=== PATIENT | female | born 1985 | race Caucasian/White ===

== ENCOUNTER → 2016-10-09 | Outpatient (CLI) | payer OTHER ==
--- NOTE | 2016-10-09 08:02 | US ---
EXAMINATION TYPE: US thyroid st tissue head/neck DATE OF EXAM: 10/09/2016 7:24 AM COMPARISON: No previous CLINICAL HISTORY: Swelling, mass and lump R22.1, Abd R10.9. Intermittent left neck palpable lump x 3 months TECHNOLOGIST IMPRESSION: Scanned left neck area of concern: multiple hypoechoic areas with largest m easuring 2.1cm, probable lymph nodes, scanned right neck for comparison; multiple hypoechoic areas wi th largest measuring 1.4cm, probable lymph nodes IMPRESSION: Multiple, normal-appearing lymph nodes.
== END | disposition home or self-care (01) ==
LOC: RADUSWWP 07:03
PROVIDERS: ATTEND Family Medicine
DX: R22.1 Localized swelling, mass and lump, neck (principal)
CPT/HCPCS: 76536

== ENCOUNTER → 2016-10-15 | Outpatient (CLI) | payer OTHER ==
--- NOTE | 2016-10-15 12:48 | PN ---
A 31-year-old lady had been followed in the sleep center to discuss results of sleep study. We discussed results of sleep studies with the patient in detail. No significant respiratory abnormalities by polysomnogram following 4% oxygen desaturation criteria, mild and moderate snoring had been documented. Multiple sleep latency test showed practically normal results with mean sleep latency 14.9 minutes, which is normal. At the same time, patient continued to feel some sleepiness during the day. During the visit, [place] Sleepiness Scale increased to 18. MEDICATIONS: Naproxen, Singulair, amlodipine. PHYSICAL EXAMINATION: GENERAL: A pleasant patient without any distress. During physical exam, the patient in no distress. VITAL SIGNS: BP 121/71, HR 76, RR 16. Height 5 feet 3 inches, weight 244. BMI 43.2. Temperature 98.3. Oxygen saturation at room air 97%. HEENT: PERRLA, EOMI, Evaluation of the oropharynx extremely low position of soft palate. NECK: Supple. No JVD, Thyroid is not palpable. LUNGS: Clear to percussion and to auscultation. Good air exchange. No wheezing or rhonchi. HEART: S1, S2 regular. No murmurs, gallops, or rubs. ABDOMEN: Obese. TELEVISION ACTOR: Awake, alert, and oriented x3. Cranial nerves 2 to 7 intact. There is no fasciculation or atrophy noted. No focal deficits observed. IMPRESSION: 1. Mild to moderate snoring has been documented during the sleep study. 2. No significant respiratory abnormalities following 4% oxygen desaturation criteria. 3. No significant sleepiness by results of MSLT normal ( ) latency. 4. Patient continued to have some symptoms of excessive daytime sleepiness, [place] Sleepiness Scale is 18. 5. Hypertension. 6. Allergy. 7. Neck problem. 8. Status post tonsillectomy. 9. Back problems. PLAN: 1. Losing weight. 2. Sleep hygiene with regular time in bed for at least 8 hours. 3. No driving if feeling any sleepiness. 4. Preferable position during sleep on the side and slightly up. Thank you very much for allowing me to participate in the management of your patient. Sincerely, Joseph Wright MD, PhD, FAASM Diplomat of [place] [employer], Sleep Medicine Board by [place] [employer] [employer] [place]
== END | disposition home or self-care (01) ==
LOC: SLEEP 10:27
PROVIDERS: ATTEND Internal Medicine
DX: R06.83 Snoring (principal); I10 Essential (primary) hypertension; Z91.09 Other allergy status, other than to drugs and biological substances; Z98.890 Other specified postprocedural states; Z79.899 Other long term (current) drug therapy

== ENCOUNTER 2017-02-26 14:35 | Emergency (ER) | payer OTHER ==
[2017-02-26 14:43] VITALS: RESP 20
[2017-02-26] MEDS ORDERED: ONDANSETRON 4 MG/2 ML VIAL IVP STA (14:49)
[2017-02-26] MEDS ORDERED: MORPHINE SULFATE 4 MG/ML SYRINGE IVP STA (14:49)
[2017-02-26] MEDS ORDERED: SODIUM CHLORIDE 0.9% 1,000 ML IV ONE (14:49)
--- NOTE | 2017-02-26 15:15 | ED ---
General Adult HPI - General Chief complaint: Recheck/Abnormal Lab/Rx Stated complaint: Abd pain Source: patient Mode of arrival: ambulatory Limitations: no limitations - History of Present Illness Initial comments: 31-year-old female with past medical history of hypertension presenting for evaluation of right upper quadrant pain present since September but worsening over the last 8 weeks. She states that the pain comes and goes there is no association with by mouth intake or specific foods. She was evaluated in September with a negative workup for her gallbladder however today she was seen by her primary care physician and a recent ultrasound showed indications of cholecystitis. She was sent by her primary care physician Dr. Garcia for ED evaluation. States taking naproxen without relief. Associated nausea. - Related Data Home Medications Medication Instructions Recorded Confirmed amLODIPine BESYLATE [Norvasc] 5 mg PO DAILY 01/22/15 02/26/17 Previous Rx's Medication Instructions Recorded HYDROcodone/APAP 5-325MG [[place] 1 - 2 tab PO Q6HR PRN #20 tab 02/26/17 5-325] Ondansetron HCl [Zofran] 4 mg PO Q8HR PRN #10 tablet 02/26/17 Allergies Allergy/AdvReac Type Severity Reaction Status Date / Time No Known Allergies Allergy Verified 09/20/15 12:11 Review of Systems ROS Statement: Those systems with pertinent positive or pertinent negative responses have been documented in the HPI. ROS Other: All systems not noted in ROS Statement are negative. Constitutional: Denies: fever, chills, weakness, weight change Eyes: Denies: eye pain, eye discharge, vision change ENT: Denies: ear pain, throat pain Respiratory: Denies: cough, dyspnea, wheezes Cardiovascular: Denies: chest pain, palpitations, dyspnea on exertion Endocrine: Denies: fatigue, polydipsia, polyuria Gastrointestinal: Reports: abdominal pain, nausea. Denies: vomiting, diarrhea, constipation, hematemesis, melena, hematochezia Genitourinary: Denies: urgency, dysuria Musculoskeletal: Denies: back pain, arthralgia, myalgia Skin: Denies: rash, lesions Neurological: Denies: headache, weakness Psychiatric: Denies: anxiety, depression Hematological/Lymphatic: Denies: easy bleeding, easy bruising Past Medical History Past Medical History: Hypertension Additional Past Medical History / Comment(s): HAVING ABDOMINAL PAIN. History of Any Multi-Drug Resistant Organisms: None Reported Past Surgical History: Section, Tonsillectomy, Tubal Ligation, Uterine Ablation Past Anesthesia/Blood Transfusion Reactions: No Reported Reaction Additional Past Anesthesia/Blood Transfusion Reaction / Comment(s): STATES SHE HAD MUSCLE WEAKNESS FOR 24 HOURS POST SURGERY IN June, (HAD GENERAL ANESTHESIA). STATES THAT NO IMMEDIATE FAMILY MEMBERS HAD ANY SUCH SYMPTOMS OR HIGH TEMP POST ANESTHESIA. Past Psychological History: No Psychological Hx Reported Smoking Status: Never smoker Past Alcohol Use History: Rare Past Drug Use History: None Reported - Past Family History Mother Family Medical History: No Reported History Father Family Medical History: Hypertension General Exam Limitations: no limitations General appearance: alert, in no apparent distress Head exam: Present: atraumatic, normocephalic, normal inspection Eye exam: Present: normal appearance, PERRL, EOMI. Absent: scleral icterus, conjunctival injection, periorbital swelling ENT exam: Present: normal exam, mucous membranes moist Neck exam: Present: normal inspection. Absent: tenderness, meningismus, lymphadenopathy Respiratory exam: Present: normal lung sounds bilaterally. Absent: respiratory distress, wheezes, rales, rhonchi, stridor Cardiovascular Exam: Present: regular rate, normal rhythm, normal heart sounds. Absent: systolic murmur, diastolic murmur, rubs, gallop, clicks GI/Abdominal exam: Present: soft, tenderness, normal bowel sounds. Absent: distended, guarding, rebound, rigid Rectal exam: Present: deferred Extremities exam: Present: normal inspection, full ROM, normal capillary refill. Absent: tenderness, pedal edema, joint swelling, calf tenderness Back exam: Present: normal inspection Neurological exam: Present: alert, oriented X3, CN II-XII intact Psychiatric exam: Present: normal affect, normal mood Skin exam: Present: warm, dry, intact, normal color. Absent: rash Course Vital Signs 02/26/17 02/26/17 14:38 16:35 Temperature 100.2 F H 97.9 F Pulse Rate 103 H 68 Respiratory 20 20 Rate Blood Pressure 145/97 118/71 O2 Sat by Pulse 98 98 Oximetry Medical Decision Making - Medical Decision Making 31-year-old female presenting for evaluation of outpatient ultrasound of her abdomen which showed indications of cholecystitis. Sent by her primary care physician Dr. Garcia after attempts to contact surgeons for outpatient management were unsuccessful. On PE there is pain to the RUQ abdomen without Burrows's sign. Concern for cholecystitis and will obtain labs and provide IVF, zofran, and pain control. Labs revealed a mild transaminitis however the remainder were within normal limits. The patient was reevaluated and had improvement in all her symptoms. Results were discussed with the on-call surgeon Dr. Lama who stated an agreement with plan to have pt follow up as an outpatient. Pt informed of this plan and given referral information. Further advised to return to this facility if her symptoms should worsen or persist. The patient acknowledged an understanding of this information and agreed with this plan of care. - Lab Data Result diagrams: 02/26/17 15:15 02/26/17 15:15 Lab Results 02/26/17 02/26/17 02/26/17 Range/Units 15:15 15:15 15:15 WBC 10.5 (3.8-10.6) k/uL RBC 4.97 (3.80-5.40) m/uL Hgb 14.8 (11.4-16.0) gm/dL Hct 42.9 (34.0-46.0) % MCV 86.2 (80.0-100.0) fL MCH 29.8 (25.0-35.0) pg MCHC 34.5 (31.0-37.0) g/dL RDW 13.9 (11.5-15.5) % Plt Count 263 (150-450) k/uL Neutrophils % 72 % Lymphocytes % 20 % Monocytes % 5 % Eosinophils % 2 % Basophils % 0 % Neutrophils # 7.6 (1.3-7.7) k/uL Lymphocytes # 2.1 (1.0-4.8) k/uL Monocytes # 0.5 (0-1.0) k/uL Eosinophils # 0.2 (0-0.7) k/uL Basophils # 0.0 (0-0.2) k/uL PT (9.0-12.0) sec INR (<1.2) APTT (22.0-30.0) sec Sodium 141 (137-145) mmol/L Potassium 4.0 (3.5-5.1) mmol/L Chloride 105 (98-107) mmol/L Carbon Dioxide 23 (22-30) mmol/L Anion Gap 13 mmol/L BUN 14 (7-17) mg/dL Creatinine 0.68 (0.52-1.04) mg/dL Est GFR (MDRD) Af Amer >60 (>60 ml/min/1.73 sqM) Est GFR (MDRD) Non-Af >60 (>60 ml/min/1.73 sqM) Glucose 72 L (74-99) mg/dL Plasma Lactic Acid Francis 0.6 L (0.7-2.0) mmol/L Calcium 9.5 (8.4-10.2) mg/dL Total Bilirubin 0.6 (0.2-1.3) mg/dL AST 49 H (14-36) U/L ALT 78 H (9-52) U/L Alkaline Phosphatase 29 L (38-126) U/L Total Protein 8.1 (6.3-8.2) g/dL Albumin 4.8 (3.5-5.0) g/dL Lipase 87 (23-300) U/L Urine Color Urine Appearance (Clear) Urine pH (5.0-8.0) Ur Specific [place] (1.001-1.035) Urine Protein (Negative) Urine Glucose (UA) (Negative) Urine Ketones (Negative) Urine Blood (Negative) Urine Nitrite (Negative) Urine Bilirubin (Negative) Urine Urobilinogen (<2.0) mg/dL Ur Leukocyte Esterase (Negative) Urine RBC (0-5) /hpf Urine WBC (0-5) /hpf Ur Squamous Epith Cells (0-4) /hpf Urine Mucus (None) /hpf 02/26/17 02/26/17 Range/Units 15:15 15:15 WBC (3.8-10.6) k/uL RBC (3.80-5.40) m/uL Hgb (11.4-16.0) gm/dL Hct (34.0-46.0) % MCV (80.0-100.0) fL MCH (25.0-35.0) pg MCHC (31.0-37.0) g/dL RDW (11.5-15.5) % Plt Count (150-450) k/uL Neutrophils % % Lymphocytes % % Monocytes % % Eosinophils % % Basophils % % Neutrophils # (1.3-7.7) k/uL Lymphocytes # (1.0-4.8) k/uL Monocytes # (0-1.0) k/uL Eosinophils # (0-0.7) k/uL Basophils # (0-0.2) k/uL PT 10.3 (9.0-12.0) sec INR 1.0 (<1.2) APTT 25.8 (22.0-30.0) sec Sodium (137-145) mmol/L Potassium (3.5-5.1) mmol/L Chloride (98-107) mmol/L Carbon Dioxide (22-30) mmol/L Anion Gap mmol/L BUN (7-17) mg/dL Creatinine (0.52-1.04) mg/dL Est GFR (MDRD) Af Amer (>60 ml/min/1.73 sqM) Est GFR (MDRD) Non-Af (>60 ml/min/1.73 sqM) Glucose (74-99) mg/dL Plasma Lactic Acid Francis (0.7-2.0) mmol/L Calcium (8.4-10.2) mg/dL Total Bilirubin (0.2-1.3) mg/dL AST (14-36) U/L ALT (9-52) U/L Alkaline Phosphatase (38-126) U/L Total Protein (6.3-8.2) g/dL Albumin (3.5-5.0) g/dL Lipase (23-300) U/L Urine Color Yellow Urine Appearance Cloudy H (Clear) Urine pH 6.5 (5.0-8.0) Ur Specific [place] 1.017 (1.001-1.035) Urine Protein Negative (Negative) Urine Glucose (UA) Negative (Negative) Urine Ketones Negative (Negative) Urine Blood Negative (Negative) Urine Nitrite Negative (Negative) Urine Bilirubin Negative (Negative) Urine Urobilinogen <2.0 (<2.0) mg/dL Ur Leukocyte Esterase Negative (Negative) Urine RBC 1 (0-5) /hpf Urine WBC 1 (0-5) /hpf Ur Squamous Epith Cells 6 H (0-4) /hpf Urine Mucus Rare H (None) /hpf Disposition Clinical Impression: Cholecystitis, Transaminitis Disposition: HOME SELF-CARE Condition: Stable Instructions: Cholecystitis (ED) Additional Instructions: Please use medication as discussed. Please follow up with family doctor if symptoms have not improved over the next two days. Please return to the emergency room if your symptoms increase or worsen or for any other concerns. Prescriptions: HYDROcodone/APAP 5-325MG [[place] 5-325] 1 - 2 tab PO Q6HR PRN #20 tab PRN Reason: Analgesia Ondansetron HCl [Zofran] 4 mg PO Q8HR PRN #10 tablet PRN Reason: Nausea Referrals: Rommel Garcia III, MD [Primary Care Provider] - 1-2 days Jeana Lama DO [Doctor of Osteopathic Medicine] - 1-2 days Time of Disposition: 16:36
[2017-02-26 15:28] LABS: Basophils % (A) 0 %; CH 29.9; CHCM 34.8; Eosinophils # (A) 0.2 k/uL (0-0.7); Eosinophils % (A) 2 %; HCT 42.9 % (34.0-46.0); HDW 2.53; HGB 14.8 gm/dL (11.4-16.0); Luc # (Auto) 0.13; Luc % (Auto) 1; Lymphocytes # (A) 2.1 k/uL (1.0-4.8); Lymphocytes % (A) 20 %; MCH 29.8 pg (25.0-35.0); MCHC 34.5 g/dL (31.0-37.0); MCV 86.2 fL (80.0-100.0); Mean Platelet Volume 7.4; Monocytes # (A) 0.5 k/uL (0-1.0); Monocytes % (A) 5 %; Neutrophils # (A) 7.6 k/uL (1.3-7.7); Neutrophils % (A) 72 %; RBC 4.97 m/uL (3.80-5.40); RDW 13.9 % (11.5-15.5); WBC 10.5 k/uL (3.8-10.6)
[2017-02-26 15:37] LABS: ALT 78 U/L (9-52); AST 49 U/L (14-36); Alkaline Phosphatase 29 U/L (38-126); Anion Gap 13 mmol/L; Blood Urea Nitrogen 14 mg/dL (7-17); Calcium 9.5 mg/dL (8.4-10.2); Carbon Dioxide 23 mmol/L (22-30); Chloride 105 mmol/L (98-107); Glucose 72 mg/dL (74-99); Non-African American GFR(MDRD) >60 (>60 ml/min/1.73 sqM); Sodium 141 mmol/L (137-145); Total Bilirubin 0.6 mg/dL (0.2-1.3); Total Protein 8.1 g/dL (6.3-8.2)
[2017-02-26 15:42] LABS: Appearance,Urine Cloudy (Clear); Bilirubin,Urine Negative (Negative); Glucose,Urine (UA) Negative (Negative); Ketones,Urine Negative (Negative); Leukocyte Esterase,Urine Negative (Negative); Mucus,Urine Rare /hpf; Nitrite,Urine Negative (Negative); PH, Urine 6.5 (5.0-8.0); Particle Count 6467; Protein,Urine Negative (Negative); RBC,Urine 1 /hpf (0-5); Specific Gravity,Urine 1.017 (1.001-1.035); Squamous Epithelial Cell,Urine 6 /hpf (0-4); UA Billing (MACRO vs. MICRO) MICRO; Urobilinogen,Urine <2.0 mg/dL (<2.0); WBC,Urine 1 /hpf (0-5)
[2017-02-26 15:47] LABS: Partial Thromboplastin Time 25.8 sec (22.0-30.0); Prothrombin Time 10.3 sec (9.0-12.0)
[2017-02-26 16:37] VITALS: BP 118/71; PULSE 68; TEMP 97.9
[2017-02-26] MEDS ORDERED: ONDANSETRON 4 MG ODT STARTER PACK 2 TAB BTL PO STA (16:37)
== END 2017-02-26 16:46 | disposition home or self-care (01) ==
LOC: EC 14:35
DX: K81.9 Cholecystitis, unspecified (principal); R74.0 Nonspecific elevation of levels of transaminase and lactic acid dehydrogenase [LDH]; R11.0 Nausea; I10 Essential (primary) hypertension; Z79.899 Other long term (current) drug therapy
CPT/HCPCS: 36415; 80053; 83605; 83690; 85025; 85610; 85730; 81001; 99284; 96374; 96375; 96361; J2270; J2405; S0119; 76700

== ENCOUNTER → 2017-02-26 | Outpatient (CLI) | payer OTHER ==
--- NOTE | 2017-02-26 11:02 | US ---
EXAMINATION TYPE: US abdomen complete DATE OF EXAM: 02/26/2017 COMPARISON: Previous study dated 03/26/2015. CLINICAL HISTORY: RUQ abd pain R10.11,Nausea R11.0,R10.816 Epigastric. Pt states RUQ pain that radiat es to back EXAM MEASUREMENTS: Liver Length: 16.8 cm Gallbladder Wall: 0.4 cm CBD: 0.4 cm Spleen: 12.1 cm Right Kidney: 12.3 x 4.6 x 4.8 cm Left Kidney: 12.1 x 5.4 x 4.8 cm Pancreas: wnl, tail obscured by bowel gas Liver: wnl Gallbladder: Possible sludge with thickened wall Evidence for sonographic Burrows's sign: Yes CBD: wnl Spleen: Small granulomas Right Kidney: wnl Left Kidney: wnl Upper IVC: wnl Abd Aorta: wnl The pancreas is poorly visualized. Liver is normal in size without evidence of biliary dilatation. There is sludge within the gallbladder. Gallbladder wall measures 4.2 mm. The distal common hepatic d uct measures 4 mm. There is a positive sonographic Burrows's sign. The spleen is normal in size with multiple calcified granulomas. Both kidneys are normal. Visualized portions of aorta and IVC are normal. IMPRESSION: 1. Findings suggestive of acute cholecystitis. 2. 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 A Yellow message has been communicated to Rommel Garcia III, MD via the [facility] system on 02/26/2017 10:59 AM, Message ID [id number].
== END | disposition home or self-care (01) ==
LOC: RADUSWWP 10:26
PROVIDERS: ATTEND Family Medicine
DX: R10.11 Right upper quadrant pain (principal); R10.816 Epigastric abdominal tenderness; R11.0 Nausea
CPT/HCPCS: 76700

== ENCOUNTER → 2017-11-16 | Outpatient (CLI) | payer OTHER ==
[2017-11-16 10:49] LABS: T4, Free (Free Thyroxine) 1.03 ng/dL (0.78-2.19)
[2017-11-16 17:08] LABS: Thyroid Peroxidase Antibodies 7930.9 U/mL (0.0-60.0)
[2017-11-16 17:56] LABS: ACTH 9.2 pg/mL (0.00-45.99)
== END | disposition home or self-care (01) ==
LOC: LABWHC1 09:58
PROVIDERS: ATTEND Internal Medicine Endocrinology, Diabetes & Metabolism
DX: E06.3 Autoimmune thyroiditis (principal); R53.83 Other fatigue
CPT/HCPCS: 36415; 82024; 82533; 82607; 83001; 84146; 84439; 84443; 84481; 86376

== ENCOUNTER → 2017-12-01 | Outpatient (CLI) | payer OTHER ==
--- NOTE | 2017-12-01 08:37 | CT ---
EXAMINATION TYPE: CT abdomen pelvis wo con DATE OF EXAM: 12/01/2017 COMPARISON: March 26, 2015 HISTORY: Low back pain CT DLP: 1240.9 mGycm Examination of the solid and hollow viscera is limited given the lack of contrast. FINDINGS: LUNG BASES: No evidence for nodule. No evidence for infiltrate. LIVER/GB: Cholecystectomy clips are in place.. No space-occupying hepatic lesion. PANCREAS: No pancreatic mass identified. No inflammatory process seen. SPLEEN: No evidence for splenomegaly. No intrasplenic lesions seen. ADRENALS: No adrenal nodules identified. No evidence for thickening. KIDNEYS: No evidence for renal mass. No nephrolithiasis. No hydronephrosis. BOWEL: Appendix has a normal appearance. No evidence of bowel obstruction. No inflammatory process. Lymph nodes: No evidence for adenopathy greater than 1 cm. Abdominal aorta: Atheromatous changes seen. No evidence for aneurysm. Genital organs: No significant abnormality. Other: No significant abnormality. IMPRESSION: 1. No significant abnormality to account for the patient's symptoms.
== END | disposition home or self-care (01) ==
LOC: RADCTMAIN 07:47
PROVIDERS: ATTEND Family Medicine
DX: D72.829 Elevated white blood cell count, unspecified (principal); R31.9 Hematuria, unspecified
CPT/HCPCS: 74176

== ENCOUNTER → 2017-12-20 | Outpatient (CLI) | payer OTHER ==
--- NOTE | 2017-12-20 15:59 | US ---
EXAMINATION TYPE: US pelvic complete DATE OF EXAM: 12/20/2017 COMPARISON: None CLINICAL HISTORY: 32-year-old female R10.2 PELVIC PAIN. TECHNIQUE: Transabdominal (TA). Date of LMP: Patient is just returning to regular cycles after a failed NovaSure procedure. FINDINGS: EXAM MEASUREMENTS: Uterus: 14.1 x 5.7 x 7.1 cm Endometrial Stripe: 0.7 cm Right Ovary: 3.1 x 1.7 x 4.0 cm Left Ovary: 2.9 x 2.4 x 3.2 cm 1. Uterus: Anteverted slightly bulky at 14 cm 2. Endometrium: measures 0.7 cm 3. Right Ovary: wnl 4. Left Ovary: wnl 5. Bilateral Adnexa: wnl 6. Posterior cul-de-sac: no free fluid IMPRESSION: Somewhat large size of the uterus at 14 cm. The endometrial stripe measures 7 mm. Normal-sized ovarie s. No pelvic free fluid.
== END | disposition home or self-care (01) ==
LOC: RADUSWWP 13:48
PROVIDERS: ATTEND Obstetrics & Gynecology
DX: N85.2 Hypertrophy of uterus (principal)
CPT/HCPCS: 76856

== ENCOUNTER → 2018-04-11 | Outpatient (CLI) | payer OTHER ==
[2018-04-11 10:07] LABS: T4, Free (Free Thyroxine) 0.99 ng/dL (0.78-2.19)
== END | disposition home or self-care (01) ==
LOC: LABWHC1 09:13
PROVIDERS: ATTEND Internal Medicine Endocrinology, Diabetes & Metabolism
DX: E03.8 Other specified hypothyroidism (principal)
CPT/HCPCS: 36415; 84439; 84443; 84480

== ENCOUNTER → 2018-05-16 | Outpatient (CLI) | payer OTHER ==
--- NOTE | 2018-05-21 08:20 | HM ---
HOLTER MONITOR REPORT 24 hour Holter monitor shows sinus mechanism, heart rate ranging from 44 to 150 beats per minute, average 85 beats per minute. No bradycardia. No significant daytime bradycardia pauses. No arrhythmias. MMODL / IJN: [id number] /
== END | disposition home or self-care (01) ==
LOC: RADECHMAIN 11:49
PROVIDERS: ATTEND Family Medicine
DX: R00.2 Palpitations (principal); I10 Essential (primary) hypertension
CPT/HCPCS: 93225; 93226

== ENCOUNTER → 2018-06-22 | Outpatient (CLI) | payer OTHER ==
--- NOTE | 2018-06-22 09:09 | US ---
EXAMINATION TYPE: US abdomen complete DATE OF EXAM: 06/22/2018 COMPARISON: 06/04/2017 CLINICAL HISTORY: 32-year-old female R10.11 right upper quadrant pain R94.5 abnormal. GB removed x 2 years ago. RUQ pain. Abn labs. FINDINGS: EXAM MEASUREMENTS: Liver Length: 15.8 cm CHD: 0.5 cm Spleen: 11.2 cm Right Kidney: 10.5 x 4.9 x 4.7 cm Left Kidney: 11.9 x 5.0x 5.3 cm Pancreas: Head and tail not well visualized due to overlying bowel gas Liver: Slightly hypoechoic appearance to the liver which may be technical. Gallbladder: Surgically absent Evidence for sonographic Burrows's sign: neg CBD: Obscured by overlying bowel gas CHD: wnl Spleen: wnl Right Kidney: Inferior pole obscured by bowel gas . No hydronephrosis. Left Kidney: wnl Upper IVC: wnl Abd Aorta: wnl IMPRESSION: 1. Slightly hypoechoic appearance to the liver which could be technical. This can also be seen in the setting of hepatitis. Clinically correlate 2. Status post cholecystectomy. No biliary ductal dilatation.
== END | disposition home or self-care (01) ==
LOC: RADUSWWP 08:00
PROVIDERS: ATTEND Family Medicine
DX: R93.2 Abnormal findings on diagnostic imaging of liver and biliary tract (principal); Z90.49 Acquired absence of other specified parts of digestive tract
CPT/HCPCS: 76700

== ENCOUNTER → 2018-08-29 | Outpatient (CLI) | payer OTHER ==
[2018-08-29 15:35] LABS: HCT 41.7 % (34.0-46.0); HGB 13.7 gm/dL (11.4-16.0); MCH 28.6 pg (25.0-35.0); MCHC 32.9 g/dL (31.0-37.0); Mean Platelet Volume 6.3; Platelet Count 239 k/uL (150-450); RBC 4.79 m/uL (3.80-5.40); RDW 13.1 % (11.5-15.5); WBC 9.7 k/uL (3.8-10.6)
[2018-08-29 17:27] LABS: Erythrocyte Sedimentation Rate 12 mm/hr (0-20)
[2018-08-30 00:49] LABS: ALT 56 U/L (8-44); AST 27 U/L (13-35); Albumin/Globulin Ratio 1.73 (1.20-2.10); Alkaline Phosphatase 21 U/L (41-126); Bilirubin, Conjugated <0.20 mg/dL (0.20-0.40); C Reactive Protein 0.9 mg/dL (0.0-0.8); Globulin 2.6 g/dL (1.6-3.3); Total Bilirubin 0.4 mg/dL (0.3-1.2); Total Protein 7.1 g/dL (6.2-8.2)
== END ==
LOC: LABWHC1 15:06
DX: R10.11 Right upper quadrant pain (principal)
CPT/HCPCS: 36415; 80076; 85027; 85652; 86140

== ENCOUNTER → 2018-08-31 | Outpatient (CLI) | payer OTHER ==
--- NOTE | 2018-09-02 10:04 | MR ---
EXAMINATION TYPE: MR shoulder RT wo con DATE OF EXAM: 09/02/2018 COMPARISON: Outside right shoulder x-ray August 24, 2018 HISTORY: Pain in right shoulder, Decreased range of motion. Difficulty raising arm overhead since Jun per patient. TECHNIQUE: Multiplanar, multisequence imaging of the right shoulder is performed without contrast. FINDINGS: Rotator Cuff: There is some increased signal distal supraspinatus and infraspinatus tendons. There is small bursal surface tear distal supraspinatus tendon measuring 9 mm AP diameter parasagittal image 8. No full-thickness retracted tear is seen. Rotator cuff muscle bulk is preserved. Subscapularis ten don show suspicious focal thickening paracoronal image 9 and axial image 10 with low T1 and T2 signal , this corresponds to prominent oval calcification or ossification on radiograph. Some surrounding fl uid is present. There is still visualization of more distal fibers. Acromioclavicular Joint: Moderate narrowing with mild spurring is present. Distal acromion morphology is unremarkable. Glenohumeral Joint: There is small to moderate glenohumeral joint effusion with fairly moderate narro wing. No significant spurring is seen. Labrum: The labrum appears grossly intact given limitation of non-arthrogram study. Biceps Tendon: The long head of biceps is in normal location within bicipital groove. Bone marrow signal: Mild subchondral cystic change superolateral humeral head. Other: No additional significant abnormality is appreciated. IMPRESSION: 1. Tendinosis of distal supraspinatus and infraspinatus tendons, focal partial bursal tear distal sup raspinatus tendon. No full-thickness rotator cuff tear. 2. Suspect acute on chronic calcific tendinitis of the subscapularis tendon with enlarged calcificati on and surrounding edema noted. 3. Fairly moderate degenerative changes acromioclavicular and glenohumeral joint especially for patie nt's chronologic age.
== END | disposition home or self-care (01) ==
LOC: RADMRIMAIN 16:34
PROVIDERS: ATTEND Orthopaedic Surgery
DX: S46.811A Strain of other muscles, fascia and tendons at shoulder and upper arm level, right arm, initial encounter (principal); M75.101 Unspecified rotator cuff tear or rupture of right shoulder, not specified as traumatic; M75.81 Other shoulder lesions, right shoulder; M19.011 Primary osteoarthritis, right shoulder

== ENCOUNTER → 2018-11-24 | Outpatient (CLI) | payer OTHER ==
--- NOTE | 2018-11-25 12:51 | MM ---
Reason for exam: screening (asymptomatic). Last mammogram was performed 4 years and 6 months ago. Physical Findings: A clinical breast exam by your physician is recommended on an annual basis and results should be correlated with mammographic findings. MG 3D Screening Mammo W/Cad Bilateral CC and MLO view(s) were taken. Prior study comparison: May 28, 2014, bilateral MG diagnostic mammo w CAD KENNETH. There are scattered fibroglandular densities. There is no discrete abnormality. No significant changes when compared with prior studies. ASSESSMENT: Negative, BI-RAD 1 RECOMMENDATION: Routine screening mammogram of both breasts at age 38.
== END | disposition home or self-care (01) ==
LOC: RADMAMWWP 07:32
PROVIDERS: ATTEND Family Medicine
DX: Z12.31 Encounter for screening mammogram for malignant neoplasm of breast (principal)
CPT/HCPCS: 77063; 77067

== ENCOUNTER → 2018-12-15 | Outpatient (CLI) | payer OTHER ==
--- NOTE | 2018-12-15 08:00 | US ---
EXAMINATION TYPE: US thyroid st tissue head/neck DATE OF EXAM: 12/15/2018 COMPARISON: US CLINICAL HISTORY: E04.9 Nontoxic Goiter. Palpable left neck nodes GLAND SIZE: Right Lobe: 4.3 x 1.7 x 1.9 cm Overall Parenchyma: heterogenous Left Lobe: 3.8 x 1.7 x 1.6 cm Overall Parenchyma: heterogeneous Isthmus Thickness: 0.6 cm NODULES RIGHT: # of nodules measured on right: 1 of multiple cyst like nodules. 1. 0.4 X 0.4 x 0.4 cm hypoechoic mixed nodule at the mid pole with well-defined margins; . This no dule is wide as is tall and shows no intranodular vascularity. LEFT: # of nodules measured on left: 0 ISTHMUS: # of nodules measured in the isthmus: 0 Bilateral neck scanned: multiple neck nodes are seen at bilateral neck. Right upper neck largest node = 1.9 x 1.3 x 0.6cm with cortical thickness of 0.3cm. At palpable left upper neck the node = 1.7 x 0 .8 x 0.8 with cortical thickness = 0.3cm. IMPRESSION: Thyroid tissue is heterogeneous correlate for thyroiditis. No nodules greater than 1 cm identified wi thin the thyroid. Scattered shotty lymphadenopathy within the neck.
== END | disposition home or self-care (01) ==
LOC: RADUSWWP 06:58
PROVIDERS: ATTEND Family Medicine
DX: E04.9 Nontoxic goiter, unspecified (principal)
CPT/HCPCS: 76536

== ENCOUNTER → 2019-05-11 | Outpatient (CLI) | payer OTHER ==
--- NOTE | 2019-05-11 08:36 | US ---
EXAMINATION TYPE: US thyroid st tissue head/neck DATE OF EXAM: 05/11/2019 COMPARISON: Thyroid ultrasound December 15, 2018 CLINICAL HISTORY: E04.1 THYROID NODULE. Follow up, no thyroid meds GLAND SIZE: Right Lobe: 4.5 x 2.2 x 1.6 cm Overall Parenchyma: heterogenous Left Lobe: 3.6 x 1.7 x 1.5 cm Overall Parenchyma: heterogeneous Isthmus Thickness: 0.3 cm NODULES- Bilateral heterogenous thyroid lobes. No prominent nodules visualized RIGHT: # of nodules measured on right: 0 -Unable to accurately visualized previously seen nodule on today exam due to heterogenicity. LEFT: # of nodules measured on left: 0 ISTHMUS: # of nodules measured in the isthmus: 0 Bilateral neck scanned, no evidence of lymphadenopathy. There is heterogeneous normal-sized thyroid without discrete greater than 1 cm nodule identified on c urrent study. IMPRESSION: Stable heterogeneous normal-sized thyroid without worrisome greater than 1 cm nodule
== END | disposition home or self-care (01) ==
LOC: RADUSWWP 07:45
PROVIDERS: ATTEND Internal Medicine Endocrinology, Diabetes & Metabolism
DX: R93.89 Abnormal findings on diagnostic imaging of other specified body structures (principal); E04.1 Nontoxic single thyroid nodule; E03.8 Other specified hypothyroidism
CPT/HCPCS: 36415; 76536; 84443

== ENCOUNTER 2019-10-04 16:15 | Observation (INO) | payer OTHER ==
--- NOTE | 2019-10-04 17:03 | ED ---
General Adult HPI - General Chief complaint: Arrhythmia/Palpitations Stated complaint: lightheadedness, chest pressure Time Seen by Provider: 10/04/19 16:20 Source: patient, RN notes reviewed, old records reviewed Mode of arrival: wheelchair Limitations: no limitations - History of Present Illness Initial comments: This is a 34 old female presents emergency Department she states she has been having fluttering in her chest for quite a few years she states she's been worked up for before but they have never been able to find why it is occurring. Patient states since Wednesday she's had 4 episodes of fluttering which were associated with near syncopal episodes. Patient states today at 1:00 she had not of fluttering episode had a near syncopal episode and also started having chest heaviness on the left side. Patient states she is also mildly short of breath per patient denies any diaphoretic episodes. Patient denies any nausea vomiting. Patient denies headache patient denies numbness weakness. Patient denies any recent fever chills or cough. Patient denies any abdominal pain. Patient denies any focal numbness or weakness. Patient denies any headache. She states currently her only symptom is some chest heaviness. - Related Data Home Medications Medication Instructions Recorded Confirmed amLODIPine BESYLATE [Norvasc] 5 mg PO DAILY 01/22/15 02/26/17 Previous Rx's Medication Instructions Recorded HYDROcodone/APAP 5-325MG [Courtenay 1 - 2 tab PO Q6HR PRN #20 tab 02/26/17 5-325] Ondansetron HCl [Zofran] 4 mg PO Q8HR PRN #10 tablet 02/26/17 Allergies Allergy/AdvReac Type Severity Reaction Status Date / Time No Known Allergies Allergy Verified 10/04/19 16:20 Review of Systems ROS Statement: Those systems with pertinent positive or pertinent negative responses have been documented in the HPI. ROS Other: All systems not noted in ROS Statement are negative. Past Medical History Past Medical History: Hypertension Additional Past Medical History / Comment(s): HX ABDOMINAL PAIN. History of Any Multi-Drug Resistant Organisms: MRSA Date of last positivie culture/infection: toe Past Surgical History: Section, Cholecystectomy, Tonsillectomy, Tubal Ligation, Uterine Ablation Past Anesthesia/Blood Transfusion Reactions: No Reported Reaction Additional Past Anesthesia/Blood Transfusion Reaction / Comment(s): STATES SHE HAD MUSCLE WEAKNESS FOR 24 HOURS POST SURGERY IN June, (HAD GENERAL ANESTHESIA). STATES THAT NO IMMEDIATE FAMILY MEMBERS HAD ANY SUCH SYMPTOMS OR HIGH TEMP POST ANESTHESIA. Past Psychological History: No Psychological Hx Reported Smoking Status: Never smoker Past Alcohol Use History: Rare Past Drug Use History: None Reported - Past Family History Mother Family Medical History: No Reported History Father Family Medical History: Hypertension General Exam - General Exam Comments Initial Comments: GENERAL: Patient is well-developed and well-nourished. Patient is nontoxic and well- hydrated and is in mild distress. ENT: Neck is soft and supple. No significant lymphadenopathy is noted. Oropharynx is clear. Moist mucous membranes. Neck has full range of motion without eliciting any pain. EYES: The sclera were anicteric and conjunctiva were pink and moist. Extraocular movements were intact and pupils were equal round and reactive to light. Eyelids were unremarkable. PULMONARY: Unlabored respirations. Good breath sounds bilaterally. No audible rales rhonchi or wheezing was noted. CARDIOVASCULAR: There is a regular rate and rhythm without any murmurs gallops or rubs. ABDOMEN: Soft and nontender with normal bowel sounds. SKIN: Skin is clear with no lesions or rashes and otherwise unremarkable. NEUROLOGIC: Patient is alert and oriented x3. Cranial nerves II through XII are grossly intact. Motor and sensory are also intact. Normal speech, volume and content. Symmetrical smile. MUSCULOSKELETAL: Normal extremities with adequate strength and full range of motion. LYMPHATICS: No significant lymphadenopathy is noted PSYCHIATRIC: Normal psychiatric evaluation. Limitations: no limitations Course Vital Signs 10/04/19 10/04/19 16:18 16:42 Temperature 98.0 F Pulse Rate 84 Pulse Rate [ 85 Aligning Inspector ] Respiratory 17 Rate Blood Pressure 124/88 O2 Sat by Pulse 99 Oximetry Medical Decision Making - Medical Decision Making EKG shows normal sinus rhythm at 84 bpm MA interval 186 QRS 100 QT interval 420 QTC is 496 per patient's EKG shows no ST segment elevation or depression. Chest x-ray showed no acute abnormality. I will back and we talked to the patient about her lab results and she indicated to me her chest pain was still there. Spoke with the significant hospitals accept the patient admitted the patient wrote admitting her to consult cardiology - Lab Data Result diagrams: 10/04/19 17:04 10/04/19 17:04 Lab Results 10/04/19 10/04/19 10/04/19 Range/Units 17:04 17:04 17:04 WBC 10.6 (3.8-10.6) k/uL RBC 5.17 (3.80-5.40) m/uL Hgb 14.9 (11.4-16.0) gm/dL Hct 43.9 (34.0-46.0) % MCV 84.8 (80.0-100.0) fL MCH 28.8 (25.0-35.0) pg MCHC 34.0 (31.0-37.0) g/dL RDW 12.2 (11.5-15.5) % Plt Count 235 (150-450) k/uL Neutrophils % 65 % Lymphocytes % 26 % Monocytes % 5 % Eosinophils % 1 % Basophils % 0 % Neutrophils # 6.9 (1.3-7.7) k/uL Lymphocytes # 2.8 (1.0-4.8) k/uL Monocytes # 0.6 (0-1.0) k/uL Eosinophils # 0.1 (0-0.7) k/uL Basophils # 0.0 (0-0.2) k/uL PT 10.1 (9.0-12.0) sec INR 1.0 (<1.2) APTT 24.5 (22.0-30.0) sec D-Dimer 0.19 (<0.60) mg/L FEU Sodium 138 (137-145) mmol/L Potassium 3.6 (3.5-5.1) mmol/L Chloride 102 (98-107) mmol/L Carbon Dioxide 26 (22-30) mmol/L Anion Gap 10 mmol/L BUN 14 (7-17) mg/dL Creatinine 0.60 (0.52-1.04) mg/dL Est GFR (CKD-EPI)AfAm >90 (>60 ml/min/1.73 sqM) Est GFR (CKD-EPI)NonAf >90 (>60 ml/min/1.73 sqM) Glucose 97 (74-99) mg/dL Calcium 9.5 (8.4-10.2) mg/dL Magnesium 2.1 (1.6-2.3) mg/dL Total Bilirubin 0.9 (0.2-1.3) mg/dL AST 41 H (14-36) U/L ALT 57 H (4-34) U/L Alkaline Phosphatase 24 L (38-126) U/L Troponin I (0.000-0.034) ng/mL Total Protein 7.8 (6.3-8.2) g/dL Albumin 4.7 (3.5-5.0) g/dL Urine Opiates Screen (NotDetected) Ur Oxycodone Screen (NotDetected) Urine Methadone Screen (NotDetected) Ur Propoxyphene Screen (NotDetected) Ur Barbiturates Screen (NotDetected) U Tricyclic Antidepress (NotDetected) Ur Phencyclidine Scrn (NotDetected) Ur Amphetamines Screen (NotDetected) U Methamphetamines Scrn (NotDetected) U Benzodiazepines Scrn (NotDetected) Urine Cocaine Screen (NotDetected) U Marijuana (THC) Screen (NotDetected) 10/04/19 10/04/19 Range/Units 17:04 17:04 WBC (3.8-10.6) k/uL RBC (3.80-5.40) m/uL Hgb (11.4-16.0) gm/dL Hct (34.0-46.0) % MCV (80.0-100.0) fL MCH (25.0-35.0) pg MCHC (31.0-37.0) g/dL RDW (11.5-15.5) % Plt Count (150-450) k/uL Neutrophils % % Lymphocytes % % Monocytes % % Eosinophils % % Basophils % % Neutrophils # (1.3-7.7) k/uL Lymphocytes # (1.0-4.8) k/uL Monocytes # (0-1.0) k/uL Eosinophils # (0-0.7) k/uL Basophils # (0-0.2) k/uL PT (9.0-12.0) sec INR (<1.2) APTT (22.0-30.0) sec D-Dimer (<0.60) mg/L FEU Sodium (137-145) mmol/L Potassium (3.5-5.1) mmol/L Chloride (98-107) mmol/L Carbon Dioxide (22-30) mmol/L Anion Gap mmol/L BUN (7-17) mg/dL Creatinine (0.52-1.04) mg/dL Est GFR (CKD-EPI)AfAm (>60 ml/min/1.73 sqM) Est GFR (CKD-EPI)NonAf (>60 ml/min/1.73 sqM) Glucose (74-99) mg/dL Calcium (8.4-10.2) mg/dL Magnesium (1.6-2.3) mg/dL Total Bilirubin (0.2-1.3) mg/dL AST (14-36) U/L ALT (4-34) U/L Alkaline Phosphatase (38-126) U/L Troponin I <0.012 (0.000-0.034) ng/mL Total Protein (6.3-8.2) g/dL Albumin (3.5-5.0) g/dL Urine Opiates Screen Not Detected (NotDetected) Ur Oxycodone Screen Not Detected (NotDetected) Urine Methadone Screen Not Detected (NotDetected) Ur Propoxyphene Screen Not Detected (NotDetected) Ur Barbiturates Screen Not Detected (NotDetected) U Tricyclic Antidepress Not Detected (NotDetected) Ur Phencyclidine Scrn Not Detected (NotDetected) Ur Amphetamines Screen Not Detected (NotDetected) U Methamphetamines Scrn Not Detected (NotDetected) U Benzodiazepines Scrn Not Detected (NotDetected) Urine Cocaine Screen Not Detected (NotDetected) U Marijuana (THC) Screen Not Detected (NotDetected) Disposition Clinical Impression: Chest pressure, Palpitations, Near syncope Disposition: ADMITTED IP TO THIS HOSP Referrals: Rmomel Garcia III, MD [Primary Care Provider] - 1-2 days Time of Disposition: 18:31
--- NOTE | 2019-10-04 17:09 | XR ---
EXAMINATION TYPE: XR chest 2V DATE OF EXAM: 10/04/2019 COMPARISON: 08/07/2014 HISTORY: Cough and congestion TECHNIQUE: FINDINGS: Heart and mediastinum are normal. Lungs are clear. Diaphragm is normal. Bony thorax appears normal. IMPRESSION: Normal chest. No change.
[2019-10-04 17:23] LABS: Basophils % (A) 0 %; Eosinophils # (A) 0.1 k/uL (0-0.7); Eosinophils % (A) 1 %; HCT 43.9 % (34.0-46.0); HGB 14.9 gm/dL (11.4-16.0); Lymphocytes # (A) 2.8 k/uL (1.0-4.8); Lymphocytes % (A) 26 %; MCH 28.8 pg (25.0-35.0); MCV 84.8 fL (80.0-100.0); Mean Platelet Volume 7.2; Monocytes # (A) 0.6 k/uL (0-1.0); Monocytes % (A) 5 %; Neutrophils # (A) 6.9 k/uL (1.3-7.7); Neutrophils % (A) 65 %; Platelet Count 235 k/uL (150-450); RBC 5.17 m/uL (3.80-5.40); RDW 12.2 % (11.5-15.5); WBC 10.6 k/uL (3.8-10.6)
[2019-10-04 17:37] LABS: ALT 57 U/L (4-34); AST 41 U/L (14-36); African American GFR (CKD) >90 (>60 ml/min/1.73 sqM); Albumin 4.7 g/dL (3.5-5.0); Alkaline Phosphatase 24 U/L (38-126); Anion Gap 10 mmol/L; Blood Urea Nitrogen 14 mg/dL (7-17); Calcium 9.5 mg/dL (8.4-10.2); Carbon Dioxide 26 mmol/L (22-30); Chloride 102 mmol/L (98-107); Glucose 97 mg/dL (74-99); Magnesium 2.1 mg/dL (1.6-2.3); Non-African American GFR(CKD) >90 (>60 ml/min/1.73 sqM); Potassium 3.6 mmol/L (3.5-5.1); Sodium 138 mmol/L (137-145); Total Bilirubin 0.9 mg/dL (0.2-1.3); Total Protein 7.8 g/dL (6.3-8.2)
[2019-10-04 17:42] LABS: D-Dimer 0.19 mg/L FEU (<0.60); Partial Thromboplastin Time 24.5 sec (22.0-30.0); Prothrombin Time 10.1 sec (9.0-12.0)
[2019-10-04 17:48] LABS: Amphetamine Screen,Urine Not Detected (NotDetected); Barbiturate Screen,Urine Not Detected (NotDetected); Benzodiazepines Screen,Urine Not Detected (NotDetected); Cocaine Screen,Urine Not Detected (NotDetected); Methadone Screen, Urine Not Detected (NotDetected); Opiate Screen,Urine Not Detected (NotDetected); Oxycodone Screen, Urine Not Detected (NotDetected); Phencyclidine Screen,Urine Not Detected (NotDetected); Tricyclic Antidepressant,Urine Not Detected (NotDetected); Urn Cannabinoid Scrn Not Detected (NotDetected)
[2019-10-04] MEDS ORDERED: NITROGLYCERIN SL TABS 0.4 MG TAB SUBLINGUAL PRN (18:32)
[2019-10-04] MEDS ORDERED: ASPIRIN 81 MG PO STA (18:32)
[2019-10-04 18:51] VITALS: RESP 18
[2019-10-04] MEDS ORDERED: ACETAMINOPHEN TAB 325 MG TAB PO PRN (21:10)
[2019-10-04] MEDS ORDERED: ONDANSETRON 4 MG/2 ML VIAL IVP PRN (21:10)
[2019-10-04] MEDS: amLODIPine 10 MG TAB PO SCH (23:13)
[2019-10-04] MEDS: NITROGLYCERIN OINT 1 INCH/GM PACKET TOPICAL SCH (23:13)
[2019-10-05] MEDS: NITROGLYCERIN OINT 1 INCH/GM PACKET TOPICAL SCH (04:12)
[2019-10-05 05:51] LABS: Cholesterol 159 mg/dL (<200); HDL Cholesterol 42 mg/dL (40-60); LDL Cholesterol,Calculated 103 mg/dL (0-99); Triglycerides 68 mg/dL (<150)
[2019-10-05] MEDS: ASPIRIN 325 MG TAB PO SCH (08:57)
[2019-10-05] MEDS: HEPARIN SODIUM,PORCINE 5,000 UNIT/ML 1 ML VIAL SQ SCH ×2 (08:57→20:26)
[2019-10-05] MEDS: PANTOPRAZOLE 40 MG TABLET PO SCH (08:57)
--- NOTE | 2019-10-05 10:13 | P.CRDCN ---
History of Present Illness History of present illness: HISTORY OF PRESENTING ILLNESS This is a pleasant 34-year-old female past medical history significant for hypertension and morbid obesity. She follows in the office with Dr. Chantelle cobb. We have been asked to see in consultation for chest pain. She states since Wednesday she has been experiencing multiple episodes of feeling lightheaded associated with palpitations, chest tightness and the feeling of almost passing out. There has been no actual syncope or loss of consciousness. The first episode occurred Wednesday night while she was out to dinner with friends. She was sitting down and had one alcoholic beverage. She then started feeling lightheaded like she was going to pass out and felt her heart "flip flopping "this lasted for approximately 15 minutes and slowly subsided on its own. This happen again on Wednesday evening while she was standing for prolonged period of time at a concert. She saw her primary care physician and was sent to the emergency room for further evaluation. She has seen Dr. Gomez in the past for similar type episodes and underwent Holter monitoring, echocardiogram and stress testing. All which were unremarkable. Echocardiogram did reveal mild to moderate MR at that time. Upon arrival to the emergency department she was having ongoing dizziness. EKG at that time revealed sinus mechanism, QTC 496 ms. There is no old EKG for comparison. Chest x-ray is negative for an acute cardiopulmonary process. Laboratory data reviewed, CBC unremarkable, d-dimer 0.19, sodium 138, potassium 3.6, creatinine 0.6, AST 41, ALT 57, alkaline phosph atase 24, cardiac enzymes negative 3, LDL 103. Current daily cardiac medications include amlodipine 10 mg daily. She takes no QT prolonging medications. REVIEW OF SYSTEMS At the time of my exam: CONSTITUTIONAL: Denies fever or chills. CARDIOVASCULAR: Denies chest pain, shortness of breath, orthopnea, PND or palpitations. RESPIRATORY: Denies cough. GASTROINTESTINAL: Denies abdominal pain, diarrhea, constipation, nausea or vomiting. MUSCULOSKELETAL: Denies myalgias. NEUROLOGIC: Denies numbness, tingling or weakness. ENDOCRINE: Denies fatigue, weight change, polydipsia or polyurina. GENITOURINARY: Denies burning, hematuria or urgency with micturation. HEMATOLOGIC: Denies history of anemia or bleeding. PHYSICAL EXAMINATION Blood pressure 115/84 heart rate 73 afebrile and maintaining oxygen saturation on room air. CONSTITUTIONAL: No apparent distress. HEENT: Head is normocephalic. Pupils are equal, round. Sclerae anicteric. Mucous membranes of the mouth are moist. No JVD. No carotid bruit. CHEST EXAMINATION: Lungs are clear to auscultation. No chest wall tenderness is noted on palpation or with deep breathing. HEART EXAMINATION: Regular rate and rhythm. S1, S2 heard. No murmurs, gallops or rub. ABDOMEN: Soft, nontender. Positive bowel sounds. EXTREMITIES: 2+ peripheral pulses, no lower extremity edema and no calf tenderness. NEUROLOGIC EXAMINATION: Patient is awake, alert and oriented x3. ASSESSMENT Near syncope, palpitations and chest pain. Atypical for angina. An acute coronary event has been ruled out. Hypertension Morbid obesity, BMI 45 PLAN An acute coronary event has been ruled out. Telemetry tracings have been unremarkable for an acute arrhythmia. Orthostatic vital signs requested are also unremarkable. Obtain 2D echocardiogram and doppler study to assess cardiac structure and function. Increase activity and ambulation and assess for symptoms of near syncope. On discharge apply 14-day event monitor for ongoing evaluation and monitoring. Follow up with Dr. Orr in 3-4 weeks. Thank you kindly for this consultation. Nurse Practitioner note has been reviewed, I agree with a documented findings and plan of care. Patient was seen and examined. Past Medical History Past Medical History: Hypertension Additional Past Medical History / Comment(s): HX ABDOMINAL PAIN. History of Any Multi-Drug Resistant Organisms: MRSA Date of last positivie culture/infection: toe MDRO Source:: TOE Past Surgical History: Section, Cholecystectomy, Tonsillectomy, Tubal Ligation, Uterine Ablation Past Anesthesia/Blood Transfusion Reactions: No Reported Reaction Additional Past Anesthesia/Blood Transfusion Reaction / Comment(s): STATES SHE HAD MUSCLE WEAKNESS FOR 24 HOURS POST SURGERY IN June, (HAD GENERAL ANESTHESIA). STATES THAT NO IMMEDIATE FAMILY MEMBERS HAD ANY SUCH SYMPTOMS OR HIGH TEMP POST ANESTHESIA. Past Psychological History: No Psychological Hx Reported Smoking Status: Never smoker Past Alcohol Use History: Rare Past Drug Use History: None Reported - Past Family History Mother Family Medical History: No Reported History Father Family Medical History: Hypertension Medications and Allergies Home Medications Medication Instructions Recorded Confirmed Type amLODIPine BESYLATE [Norvasc] 10 mg PO HS 01/22/15 10/04/19 History Adalimumab [Humira Pen] 40 mg SQ Q14D 10/04/19 10/04/19 History Allergies Allergy/AdvReac Type Severity Reaction Status Date / Time cinnamon AdvReac Itching Verified 10/04/19 19:19 clove AdvReac Itching Verified 10/04/19 19:19 Physical Exam Vitals: Vital Signs Temp Pulse Pulse Pulse Pulse Pulse Resp 10/05/19 09:51 76 93 73 10/05/19 08:00 97.9 F 80 18 10/05/19 03:52 77 18 10/05/19 03:50 98.3 F 77 18 10/04/19 23:53 75 18 10/04/19 23:48 98.3 F 75 18 10/04/19 20:00 98.4 F 76 18 10/04/19 18:51 71 18 10/04/19 16:42 85 10/04/19 16:18 98.0 F 84 17 BP BP BP BP Pulse Ox 10/05/19 09:51 113/89 115/84 109/74 10/05/19 08:00 117/79 10/05/19 03:52 10/05/19 03:50 105/64 96 10/04/19 23:53 10/04/19 23:48 122/77 96 10/04/19 20:00 132/84 98 10/04/19 18:51 107/66 98 10/04/19 16:42 10/04/19 16:18 124/88 99 Intake and Output 10/04/19 10/05/19 10/05/19 22:59 06:59 14:59 Other: Voiding Method Toilet # Voids 1 Weight 116.573 kg 115.7 kg Results 10/04/19 17:04 10/04/19 17:04 Cardiac Enzymes 10/04/19 10/04/19 10/04/19 Range/Units 17:04 17:04 23:01 AST 41 H (14-36) U/L Troponin I <0.012 <0.012 (0.000-0.034) ng/mL 10/05/19 Range/Units 05:25 AST (14-36) U/L Troponin I <0.012 (0.000-0.034) ng/mL Coagulation 10/04/19 Range/Units 17:04 PT 10.1 (9.0-12.0) sec APTT 24.5 (22.0-30.0) sec Lipids 10/05/19 Range/Units 05:25 Triglycerides 68 (<150) mg/dL Cholesterol 159 (<200) mg/dL HDL Cholesterol 42 (40-60) mg/dL CBC 10/04/19 Range/Units 17:04 WBC 10.6 (3.8-10.6) k/uL RBC 5.17 (3.80-5.40) m/uL Hgb 14.9 (11.4-16.0) gm/dL Hct 43.9 (34.0-46.0) % Plt Count 235 (150-450) k/uL Comprehensive Metabolic Panel 10/04/19 Range/Units 17:04 Sodium 138 (137-145) mmol/L Potassium 3.6 (3.5-5.1) mmol/L Chloride 102 (98-107) mmol/L Carbon Dioxide 26 (22-30) mmol/L BUN 14 (7-17) mg/dL Creatinine 0.60 (0.52-1.04) mg/dL Glucose 97 (74-99) mg/dL Calcium 9.5 (8.4-10.2) mg/dL AST 41 H (14-36) U/L ALT 57 H (4-34) U/L Alkaline Phosphatase 24 L (38-126) U/L Total Protein 7.8 (6.3-8.2) g/dL Albumin 4.7 (3.5-5.0) g/dL Current Medications Generic Name Dose Route Start Last Admin Trade Name Freq PRN Reason Stop Dose Admin Acetaminophen 650 mg 10/04/19 21:10 10/05/19 08:57 Tylenol Tab PO 650 mg Q6HR PRN Administration Fever and/ or Pain Amlodipine Besylate 10 mg 10/04/19 21:15 10/04/19 23:13 Norvasc PO 10 mg HS SIENNA Administration Aspirin 325 mg 10/05/19 09:00 10/05/19 08:57 Aspirin PO 325 mg DAILY SIENNA Administration Heparin Sodium (Porcine) 5,000 unit 10/05/19 09:00 10/05/19 08:57 Heparin SQ 5,000 unit Q12HR SIENNA Administration Nitroglycerin 0.4 mg 10/04/19 18:32 Nitrostat SUBLINGUAL Q5M PRN Chest Pain Ondansetron HCl 4 mg 10/04/19 21:10 Zofran IVP Q6HR PRN Nausea And Vomiting Pantoprazole Sodium 40 mg 10/05/19 07:30 10/05/19 08:57 Protonix PO 40 mg [id number] SIENNA Administration Intake and Output 10/04/19 10/05/19 10/05/19 22:59 06:59 14:59 Other: Voiding Method Toilet # Voids 1 Weight 116.573 kg 115.7 kg 10/04/19 17:04 10/04/19 17:04
--- NOTE | 2019-10-05 12:39 | P.HPIM ---
History of Present Illness This is a pleasant 34 years old female with past medical history of hypertension, tubal ligation, lightheadedness. Presents with episodes of dizziness and lightheadedness That started about 5-6 days ago her lightheadedness. And with headache, some feeling of chest pressure and fluttering, her fluttering has these down and disappeared, she still has a little chest pressure however she still feels lightheadedness. Also patient was complaining of from blurred vision and she sought contract technical writer about one month ago and he did is her surgery for her right eye about one month ago and her left eye about 2 weeks ago, immediately after the left eye surgery she started having some frontal headache very similar to the headache she has a two- day however it was subsided before it comes back with lightheadedness on last Wednesday and Wednesday. She still feeling blurred vision, no diplopia and her vision loss focus when she tries to read for example a paper or TV subtitle No weakness or abnormal sensation, no nausea vomiting, no slurred speech Vitals been stable and postural vitals were negative. Serial troponins 3 are negative, blood work were unremarkable including CBC, BMP, mildly elevated liver enzymes, urinary tract screen is negative. INR is normal at 1.0, d-dimer is negative at 0.19 Chest x-ray: Unremarkable acute process bar radiologist. Patient has been evaluated by international broadcast music librarian reviewed her medication, patient has been seen Dr. Gomez her international broadcast music librarian before for similar complaints at that time she underwent Holter monitoring, echocardiogram and stress test which were unremarkable by cardiology note. Telemetry was uneventful by international broadcast music librarian pt declined preg test when offered stating " no chance", risks ,and benefits are explained Review of Systems Review of systems CONSTITUTIONAL: No fever, no malaise, no fatigue. HEENT: No recent visual problems or hearing problems. Denied any sore throat. CARDIOVASCULAR: No orthopnea, PND, no palpitations, no syncope. PULMONARY: No shortness of breath, no cough, no hemoptysis. GASTROINTESTINAL: No diarrhea, no nausea, no vomiting, no abdominal pain. Normoactive bowel sounds. NEUROLOGICAL: no weakness, no numbness. HEMATOLOGICAL: Denies any bleeding or petechiae. GENITOURINARY: Denies any burning micturition, frequency, or urgency. MUSCULOSKELETAL/RHEUMATOLOGICAL: Denies any joint pain, swelling, or any muscle pain. ENDOCRINE: Denies any polyuria or polydipsia. Past Medical History Past Medical History: Hypertension Additional Past Medical History / Comment(s): HX ABDOMINAL PAIN. History of Any Multi-Drug Resistant Organisms: MRSA Date of last positivie culture/infection: toe MDRO Source:: TOE Past Surgical History: Section, Cholecystectomy, Tonsillectomy, Tubal Ligation, Uterine Ablation Past Anesthesia/Blood Transfusion Reactions: No Reported Reaction Additional Past Anesthesia/Blood Transfusion Reaction / Comment(s): STATES SHE HAD MUSCLE WEAKNESS FOR 24 HOURS POST SURGERY IN June, (HAD GENERAL ANESTHESIA). STATES THAT NO IMMEDIATE FAMILY MEMBERS HAD ANY SUCH SYMPTOMS OR HIGH TEMP POST ANESTHESIA. Past Psychological History: No Psychological Hx Reported Smoking Status: Never smoker Past Alcohol Use History: Rare Past Drug Use History: None Reported - Past Family History Mother Family Medical History: No Reported History Father Family Medical History: Hypertension Medications and Allergies Home Medications Medication Instructions Recorded Confirmed Type amLODIPine BESYLATE [Norvasc] 10 mg PO HS 01/22/15 10/04/19 History Adalimumab [Humira Pen] 40 mg SQ Q14D 10/04/19 10/04/19 History Allergies Allergy/AdvReac Type Severity Reaction Status Date / Time cinnamon AdvReac Itching Verified 10/04/19 19:19 clove AdvReac Itching Verified 10/04/19 19:19 Physical Exam Vitals: Vital Signs Temp Pulse Pulse Pulse Pulse Pulse Resp 10/05/19 09:51 76 93 73 10/05/19 08:00 97.9 F 80 18 10/05/19 03:52 77 18 10/05/19 03:50 98.3 F 77 18 10/04/19 23:53 75 18 10/04/19 23:48 98.3 F 75 18 10/04/19 20:00 98.4 F 76 18 10/04/19 18:51 71 18 10/04/19 16:42 85 10/04/19 16:18 98.0 F 84 17 BP BP BP BP Pulse Ox 10/05/19 09:51 113/89 115/84 109/74 10/05/19 08:00 117/79 10/05/19 03:52 10/05/19 03:50 105/64 96 10/04/19 23:53 10/04/19 23:48 122/77 96 03/04/20 20:00 132/84 98 10/04/19 18:51 107/66 98 10/04/19 16:42 10/04/19 16:18 124/88 99 Intake and Output 10/04/19 10/05/19 10/05/19 22:59 06:59 14:59 Other: Voiding Method Toilet # Voids 1 Weight 116.573 kg 115.7 kg GENERAL: The patient is alert and oriented x3, not in any acute distress. Well developed, well nourished. HEENT: Pupils are round and equally reacting to light. EOMI. No scleral icterus. No conjunctival pallor. Normocephalic, atraumatic. No pharyngeal erythema. No thyromegaly. CARDIOVASCULAR: S1 and S2 present. No murmurs, rubs, or gallops. PULMONARY: Chest is clear to auscultation, no wheezing or crackles. ABDOMEN: Soft, nontender, nondistended, normoactive bowel sounds. No palpable organomegaly. MUSCULOSKELETAL: No joint swelling or deformity. EXTREMITIES: No cyanosis, clubbing, or pedal edema. NEUROLOGICAL: Alert awake oriented 3, cranial nerves are grossly intact, strength is 5/5 in all instrument and sensation is intact with no less on numbness in all extremity, meningeal signs are absent SKIN: No rashes. no petechiae. Results CBC & Chem 7: 10/04/19 17:04 10/04/19 17:04 Labs: Abnormal Lab Results - Last 24 Hours (Table) 10/04/19 10/05/19 Range/Units 17: 05:25 AST 41 H (14-36) U/L ALT 57 H (4-34) U/L Alkaline Phosphatase 24 L (38-126) U/L LDL Cholesterol, Calc 103 H (0-99) mg/dL Thrombosis Risk Factor Assmnt - Choose All That Apply Any of the Below Risk Factors Present?: Yes Each Factor Represents 1 point: Acute AL, Obesity (BMI >25) Other Risk Factors: No Other congenital or acquired thrombophilia - If yes, enter type in comment: No Thrombosis Risk Factor Assessment Total Risk Factor Score: 2 Thrombosis Risk Factor Assessment Level: Low Risk Assessment and Plan Assessment: Lightheadedness and headache Blurred vision, recent eye surgery in her right eye 4 weeks ago and left eye 2 weeks ago. Possible Presyncope with some chest pressure, evaluated by international broadcast music librarian who cleared her for discharge with 14 day Holter monitor and follow up with international broadcast music librarian as an outpatient Hypertension Morbid obesity with BMI 45 Plan: This is a pleasant 34 years old female who presents with lightheadedness, blurred vision and some chest sure and suspicion for presyncope. Professional Benefits Sales Consultant evaluated the patient and cleared her for discharge on 14 days pvc monitor. However because of her persistent ophthalmic symptoms and lightheadedness with frontal headache patient is recommended to have contract technical writer evaluation. Discussed with the patient and she agrees with this plan. Also we will do a CAT scan of the head Labs and medication were reviewed.. Continue same treatment. Continue with symptomatic treatment. Resume home medication. Monitor lytes and vitals. DVT and GI prophylaxis. Further recommendations of the clinical course of the patient DVT prophylaxis: Subcutaneous heparin GI Prophylaxis: Pepcid PT/OT: Pending Prognosis is guarded
--- NOTE | 2019-10-05 13:27 | CT ---
EXAMINATION TYPE: CT brain wo con DATE OF EXAM: 10/05/2019 COMPARISON: MRI IAC November 14, 2013. HISTORY: lightheadedness and blurred vision CT DLP: 1099.4 mGycm. Automated Exposure Control for Dose Reduction was Utilized. TECHNIQUE: CT scan of the head is performed without contrast. FINDINGS: There is no acute intracranial hemorrhage, mass effect, or midline shift identified. The ventricles and sulci are within normal limits in size. Card-white matter differentiation is maintain ed. The globes are intact and the visualized sinuses are clear. IMPRESSION: Unremarkable study.
--- NOTE | 2019-10-05 17:26 | ECHOF ---
Referral Reason: MEASUREMENTS -------- HEIGHT: 160.0 cm WEIGHT: 115.7 kg BP: 117/79 RVIDd: 3.0 cm (< 3.3) IVSd: 1.2 cm (0.6 - 1.1) LVIDd: 5.0 cm (3.9 - 5.3) LVPWd: 1.2 cm (0.6 - 1.1) IVSs: 1.5 cm LVIDs: 3.2 cm LVPWs: 1.7 cm LAESV Index (A-L): 31.93 ml/m Ao Diam: 3.1 cm (2.0 - 3.7) AV Cusp: 2.2 cm (1.5 - 2.6) MV EXCURSION: 19.315 mm (> 18.000) MV EF SLOPE: 97 mm/s (70 - 150) EPSS: 0.8 cm MV E Chris: 0.87 m/s MV DecT: 177 ms MV A Chris: 0.81 m/s MV E/A Ratio: 1.08 RAP: 5.00 mmHg RVSP: 22.71 mmHg FINDINGS -------- Sinus rhythm. This was a technically adequate study. The left ventricular size is normal. There is mild concentric left ventricular hypertrophy. Overa ll left ventricular systolic function is normal with, an EF between 55 - 60 %. The diastolic fillin g pattern is normal for the age of the patient 10.77. The right ventricle is normal in size. LA is midly dilated 29-33ml/m2. The right atrial size is normal. Interatrial and interventricular septum intact. The aortic valve was not well visualized. There is no evidence of aortic regurgitation. There is no evidence of aortic stenosis. Mild mitral regurgitation is present. Mild tricuspid regurgitation present. There is no evidence of pulmonary hypertension. The right v entricular systolic pressure, as measured by Doppler, is 22.71mmHg. There is no pulmonic regurgitation present. The aortic root size is normal. Normal inferior vena cava with normal inspiratory collapse consistent with estimated right atrial pre ssure of 5 mmHg. There is no pericardial effusion. CONCLUSIONS -------- 1. Sinus rhythm. 2. This was a technically adequate study. 3. The left ventricular size is normal. 4. There is mild concentric left ventricular hypertrophy. 5. Overall left ventricular systolic function is normal with, an EF between 55 - 60 %. 6. The diastolic filling pattern is normal for the age of the patient 10.77 7. The right ventricle is normal in size. 8. LA is midly dilated 29-33ml/m2. 9. The right atrial size is normal. 10. Interatrial and interventricular septum intact. 11. The aortic valve was not well visualized. 12. There is no evidence of aortic regurgitation. 13. There is no evidence of aortic stenosis. 14. Mild mitral regurgitation is present. 15. Mild tricuspid regurgitation present. 16. There is no evidence of pulmonary hypertension. 17. The right ventricular systolic pressure, as measured by Doppler, is 22.71mmHg. 18. There is no pulmonic regurgitation present. 19. The aortic root size is normal. 20. Normal inferior vena cava with normal inspiratory collapse consistent with estimated right atrial pressure of 5 mmHg. 21. There is no pericardial effusion. DEPARTMENT [employer]FF[employer]OUTER: Marcela Nixon RDCS
--- NOTE | 2019-10-05 19:11 | CONS ---
CONSULTATION CHIEF COMPLAINT: The patient is developing headaches for the last several weeks associated with mild blurry vision. PAST EYE HISTORY: The patient had a narrow angle glaucoma, had laser peripheral eye iridotomy or (laser eye iridotomy) a few months ago to relieve the pressure. MEDICAL HISTORY: Reviewed. EYE EXAMINATION: VISION: Right eye is 20/14, pinhole reading; left eye 20/30, pinhole reading. Extraocular motility is full. Pupils equal and reactive. Lens 1+ nuclear sclerosis. Intraocular pressure 18 mmHg right eye and 21 mmHg in the left eye. Confrontation normal. Iris shows superior peripheral iridotomies which are patent. Retina deferred. ASSESSMENT: 1. Narrow angle glaucoma had peripheral laser iridotomy. 2. Visual distortion. PLAN: The patient needs new glasses. Will need also visual field testing. This patient belongs to our office, so she is coming back for an appointment in a week or 2 to perform further testing and glasses checked. No acute condition at this moment. MMODL / IJN: [id number] /
[2019-10-05] MEDS: amLODIPine 10 MG TAB PO SCH (20:26)
[2019-10-05] MEDS: FAMOTIDINE 20 MG/2 ML VIAL IV SCH (20:26)
[2019-10-06 07:20] VITALS: BP 115/81; TEMP 98.2
[2019-10-06] MEDS: HEPARIN SODIUM,PORCINE 5,000 UNIT/ML 1 ML VIAL SQ SCH (07:43)
[2019-10-06] MEDS: ASPIRIN 325 MG TAB PO SCH (07:44)
[2019-10-06] MEDS: PANTOPRAZOLE 40 MG TABLET PO SCH (07:44)
[2019-10-06] MEDS: FAMOTIDINE 20 MG/2 ML VIAL IV SCH (07:44)
[2019-10-06 09:38] VITALS: PULSE 80
--- NOTE | 2019-10-06 12:01 | P.PN ---
Subjective HISTORY OF PRESENTING ILLNESS This is a pleasant 34-year-old female past medical history significant for hypertension and morbid obesity. She follows in the office with Dr. Orr. The patient is seen and examined laying flat in bed in no acute distress. She has been up and ambulating in the halls and around the room without reoccurrence of her near syncope. She was seen last night by opthamology and apparently she has been diagnosed in the past with narrow angle glaucoma s/p laser iridotomy a few months ago. She has a follow up appointment scheduled in 2 weeks for further evaluation and testing. Telemetry tracings have been unr emarkable for an acute arrhythmia. Echocardiogram obtained reveals preserved LV systolic function with ejection fraction 55-60%. Blood pressure 115/81 heart rate 78 afebrile maintaining oxygen saturation on room air. PHYSICAL EXAMINATION Blood pressure 115/84 heart rate 73 afebrile and maintaining oxygen saturation on room air. CONSTITUTIONAL: No apparent distress. HEENT: Head is normocephalic. Pupils are equal, round. Sclerae anicteric. Mucous membranes of the mouth are moist. No JVD. No carotid bruit. CHEST EXAMINATION: Lungs are clear to auscultation. No chest wall tenderness is noted on palpation or with deep breathing. HEART EXAMINATION: Regular rate and rhythm. S1, S2 heard. No murmurs, gallops or rub. ABDOMEN: Soft, nontender. Positive bowel sounds. EXTREMITIES: 2+ peripheral pulses, no lower extremity edema and no calf tenderness. NEUROLOGIC EXAMINATION: Patient is awake, alert and oriented x3. ASSESSMENT Near syncope, palpitations and chest pain. Atypical for angina. An acute coronary event has been ruled out. Hypertension Morbid obesity, BMI 45 PLAN Event monitor has been applied as recommended. Follow-up in the office with Dr. Gomez in 3 weeks. Stable for discharge from a cardiac perspective. Nurse Practitioner note has been reviewed, I agree with a documented findings and plan of care. Patient was seen and examined. Objective - Vital Signs Vital signs: Vital Signs Temp 98.2 F 10/06/19 07:18 Pulse 80 10/06/19 08:00 Resp 18 10/06/19 08:00 BP 115/81 10/06/19 07:18 Pulse Ox 95 10/06/19 07:18 Intake & Output 10/05/19 10/06/19 10/06/19 18:59 06:59 18:59 Other: Voiding Method Toilet Toilet Toilet # Voids 1 - Labs CBC & Chem 7: 10/04/19 17:04 10/04/19 17:04
--- NOTE | 2019-10-06 14:26 | P.DS ---
Providers Date of admission: 10/04/19 18:32 Expected date of discharge: 10/06/19 Attending physician: Nadeem Sierra Consults: 10/04/19 18:32 Consult Physician Urgent Consulting Provider: [facility] Consult Reason/Comments: Chest pain Do you want consulting provider notified?: Yes 10/05/19 12:37 Consult Physician Urgent Consulting Provider: Kavon Drake Consult Reason/Comments: blurred vission , lighthead, TAVAREZ, recent eye laser surgery Do you want consulting provider notified?: Yes Primary care physician: Rommel Garcia [facility] Course: 34-year-old female past medical history significant for hypertension and morbid obesity. She follows in the office with Dr. Orr. The patient is seen and examined laying flat in bed in no acute distress. She has been up and ambulating in the halls and around the room without reoccurrence of her near syncope. She was seen last night by opthamology and apparently she has been diagnosed in the past with narrow angle glaucoma s/p laser iridotomy a few months ago. She has a follow up appointment scheduled in 2 weeks for further evaluation and testing. Telemetry tracings have been unremarkable for an acute arrhythmia. Echocardiogram obtained reveals preserved LV systolic function with ejection fraction 55-60%. Blood pressure 115/81 heart rate 78 afebrile maintaining oxygen saturation on room air. Patient was admitted to the hospital with near syncope, palpitations and chest pain; cardiology saw patient and deemed chest pain atypical for angina; acute coronary syndrome was ruled out; patient was recommended a 14 day event monitor and was discharged home in a stable condition with recommendations to follow-up with cardiology in 3 weeks Plan - Discharge Summary Discharge Rx Participant: No New Discharge Prescriptions: No Action amLODIPine BESYLATE [Norvasc] 10 mg PO HS Adalimumab [Humira Pen] 40 mg SQ Q14D Discharge Medication List amLODIPine BESYLATE [Norvasc] 10 mg PO HS 01/22/15 [History] Adalimumab [Humira Pen] 40 mg SQ Q14D 10/04/19 [History] Follow up Appointment(s)/Referral(s): Aldair Orr MD [STAFF PHYSICIAN] - 11/03/19 2:30 pm (November appointment cancelled ) Rommel Garcia III, MD [Primary Care Provider] - 1-2 days Patient Instructions/Handouts: Chest Pain (DC) Discharge Disposition: HOME SELF-CARE
[2019-10-06] MEDS ORDERED: FAMOTIDINE 20 MG TAB PO SCH (21:00)
--- NOTE | 2019-10-23 19:29 | EM ---
EVENT MONITOR 14-DAY EVENT MONITOR: The patient was monitored for 14 days. The baseline rhythm appeared to be sinus. The patient did have multiple episodes of sinus tachycardia. During these episodes, she was asymptomatic. During one episode she did have symptoms of irregular heart beat and heart racing. Also the patient had multiple and frequent episodes of supraventricular premature beats. She was also symptomatic during these episodes with a feeling of irregular heart rhythm. No evidence of sinus pause or sinus arrest. No evidence of any advanced AV block seen. No evidence of any atrial fibrillation or atrial flutter. CONCLUSION: 1. This is a 14-day event monitor. 2. The baseline rhythm is sinus mechanism. 3. The patient did have multiple episodes of sinus tachycardia. 4. The patient did have multiple episodes of supraventricular premature beats. 5. The patient did not have any episode of sinus pause or sinus arrest. 6. The patient felt symptomatic with the premature supraventricular beats. MMODL / IJN: [id number] /
== END 2019-10-06 15:03 | disposition home or self-care (01) ==
LOC: EC 16:15 → 1SOBS 18:32
PROVIDERS: ADMIT Hospitalist; ATTEND Hospitalist
DX: R07.89 Other chest pain (principal); R00.2 Palpitations; R55 Syncope and collapse; I10 Essential (primary) hypertension; E66.01 Morbid (severe) obesity due to excess calories; Z68.42 Body mass index [BMI] 45.0-49.9, adult; H40.20X0 Unspecified primary angle-closure glaucoma, stage unspecified; Z91.02 Food additives allergy status; Z82.49 Family history of ischemic heart disease and other diseases of the circulatory system; Z79.82 Long term (current) use of aspirin; Z79.899 Other long term (current) drug therapy; Z90.49 Acquired absence of other specified parts of digestive tract
CPT/HCPCS: 93005 ×2; 96372 ×2; 99285; 36415; 93306; 93270; 97161; 85379; 80061; 80053; 83735; 84484 ×2; 85025; 85610; 85730; 80306; 71046; 70450; G0378 ×3; J1644 ×2

== ENCOUNTER → 2020-05-16 | Outpatient (CLI) | payer OTHER | END | disposition home or self-care (01) | LOC: LABWHC1 10:44 | PROVIDERS: ATTEND Internal Medicine Endocrinology, Diabetes & Metabolism | DX: E03.8 Other specified hypothyroidism (principal) | CPT/HCPCS: 36415; 84439; 84443; 86376 ==

== ENCOUNTER → 2020-07-31 | Outpatient (CLI) | payer OTHER ==
--- NOTE | 2020-07-31 15:04 | MM ---
Reason for exam: additional evaluation requested from prior study. Last mammogram was performed 1 year and 8 months ago. Physical Findings: Nurse did not find any significant physical abnormalities on exam. MG 3D Diag Mammo W/Cad KENNETH Bilateral CC, MLO, and XCCL view(s) were taken. Prior study comparison: November 24, 2018, bilateral MG 3d screening mammo w/cad. May 28, 2014, bilateral MG diagnostic mammo w CAD KENNETH. There are scattered fibroglandular densities. No significant new findings when compared with previous films. These results were verbally communicated with the patient and result sheet given to the patient on 07/31/20. ASSESSMENT: Negative, BI-RAD 1 RECOMMENDATION: Routine screening mammogram of both breasts at age 38. Manage on a clinical basis with regard to benign yellowish bilateral nipple discharge occuring intermittently for the last 3 years.
== END | disposition home or self-care (01) ==
LOC: RADMAMWWP 13:57
PROVIDERS: ATTEND Family Medicine
DX: N64.52 Nipple discharge (principal)
CPT/HCPCS: 77062; 77066

== ENCOUNTER → 2020-09-23 | Outpatient (CLI) | payer OTHER ==
--- NOTE | 2020-09-23 09:00 | US ---
EXAMINATION TYPE: US abdomen complete DATE OF EXAM: 09/23/2020 COMPARISON: CLINICAL HISTORY: K21.9 Gastro-esophageal reflux disease,R10.9,R11.0. GB removed x 5 years ago. Naus ea. EXAM MEASUREMENTS: Liver Length: 17.3 cm CBD: 0.7 cm Spleen: 11.2 cm Right Kidney: 11.9 x 4.9 x 5.2 cm Left Kidney: 11.2 x 5.2 x 5.4 cm Pancreas: Tail obscured by overlying bowel gas Liver: Heterogenous in appearance. Upper limits of normal in size. Gallbladder: Surgically absent Evidence for sonographic Burrows's sign: neg CBD: wnl Spleen: wnl Right Kidney: No hydronephrosis or masses seen Left Kidney: No hydronephrosis or masses seen Upper IVC: wnl Abd Aorta: No AAA visualized IMPRESSION: 1. Mild fatty infiltration liver.
== END | disposition home or self-care (01) ==
LOC: RADUSWWP 07:26
PROVIDERS: ATTEND Family Medicine
DX: K76.0 Fatty (change of) liver, not elsewhere classified (principal); K21.9 Gastro-esophageal reflux disease without esophagitis
CPT/HCPCS: 76700

== ENCOUNTER → 2021-05-09 | Outpatient (CLI) | payer OTHER ==
--- NOTE | 2021-05-09 11:24 | US ---
EXAMINATION TYPE: US thyroid st tissue head/neck DATE OF EXAM: 05/09/2021 COMPARISON: 05/11/19 CLINICAL HISTORY: E04.1 SINGLE THYROID NODULE. GLAND SIZE: Right Lobe: 5.2x2.0x1.8 cm Overall Parenchyma: heterogenous Left Lobe: 4.0x1.6x1.7 cm Overall Parenchyma: heterogeneous Isthmus Thickness: 0.3 cm NODULES RIGHT: # of nodules measured on right: 0 LEFT: # of nodules measured on left: 0 ISTHMUS: # of nodules measured in the isthmus: 0 Bilateral neck scanned, no evidence of lymphadenopathy. Bilateral heterogenous thyroid with increased vascularity. IMPRESSION: Heterogeneous tissue suggestive of thyroiditis correlate clinically. No sizable thyroid nodule. 2017 ACR TI-RADS LEVEL: TR-RADS 1 - BENIGN: No FNA *Highest TI-RADS level nodule reported
== END | disposition home or self-care (01) ==
LOC: RADUSWWP 09:55
PROVIDERS: ATTEND Internal Medicine Endocrinology, Diabetes & Metabolism
DX: E07.89 Other specified disorders of thyroid (principal)
CPT/HCPCS: 76536

== ENCOUNTER → 2022-01-15 | Outpatient (CLI) | payer OTHER ==
--- NOTE | 2022-01-15 17:17 | US ---
EXAMINATION TYPE: US abdomen complete DATE OF EXAM: 01/15/2022 COMPARISON: 09/23/2020 CLINICAL HISTORY: 36-year-old female elevated levels R74.01. TECHNIQUE: Multiple sonographic images of the abdomen are obtained. FINDINGS: EXAM MEASUREMENTS: Liver Length: 15.6 cm Gallbladder: Surgically absent CBD: .6 cm Spleen: 11.1 cm Right Kidney: 10.1 x 4.5 x 5.1 cm Left Kidney: 11.5 x 5.3 x 4.2 cm Pancreas: Only a small portion of the pancreatic neck and body is seen. Head and tail obscured by coco wel gas shadowing. Liver: Increased echogenicity and attenuation Gallbladder: Surgically absent Evidence for sonographic Burrows's sign: No CBD: Borderline dilated. Spleen: wnl Right Kidney: wnl Left Kidney: wnl Upper IVC: wnl Abd Aorta: wnl IMPRESSION: 1. Borderline dilated bile duct at 6 mm. This is acceptable given postcholecystectomy status. Correla te with alkaline phosphatase and bilirubin levels. 2. There maybe slight progression now with moderate hepatic steatosis. Correlate with LFTs, lipid pro file, and patient risk factors.
[2022-01-15 18:15] LABS: Basophils # (A) 0.03 X 10*3/uL (0.00-0.10); Basophils % (A) 0.3 %; Eosinophils # (A) 0.09 X 10*3/uL (0.04-0.35); HCT 41.9 % (37.2-46.3); HGB 13.9 g/dL (12.0-15.0); Immature Grans, Automated 0.4 %; Lymphocytes # (A) 2.08 X 10*3/uL (0.90-5.00); Lymphocytes % (A) 23.3 %; MCH 29.2 pg (27.0-32.0); MCHC 33.2 g/dL (32.0-37.0); Monocytes # (A) 0.62 X 10*3/uL (0.20-1.00); Monocytes % (A) 6.9 %; NRBC Per 100 WBC 0 /100 WBCS (0.0-0.0); Neutrophils # (A) 6.07 X 10*3/uL (1.80-7.70); Neutrophils % (A) 68.1 %; Platelet Count 242 X 10*3/uL (140-440); RBC 4.76 X 10*6/uL (4.10-5.20); RDW 12.4 % (11.5-14.5); WBC 8.93 X 10*3/uL (4.50-10.00)
[2022-01-15 18:33] LABS: % Iron Saturation 46.31 (12.00-45.00); African American GFR (CKD) 127.4 (60.0-200.0); Albumin 4.5 g/dL (3.8-4.9); Albumin/Globulin Ratio 1.55 (1.60-3.17); Anion Gap 10.7 mmol/L (10.00-18.00); BUN/Creat Ratio 18.43 Ratio (12.00-20.00); Blood Urea Nitrogen 12.9 mg/dL (9.0-27.0); Calcium 9.4 mg/dL (8.7-10.3); Carbon Dioxide 25.3 mmol/L (20.0-27.5); Globulin 2.9 g/dL (1.6-3.3); Non-African American GFR(CKD) 109.9 (60.0-200.0); Potassium 4.1 mmol/L (3.5-5.5); Total Bilirubin 0.7 mg/dL (0.30-1.20); Total Protein 7.4 g/dL (6.2-8.2)
[2022-01-15 18:37] LABS: Protein, Total 7.2 g/dL (6.2-8.2)
[2022-01-15 18:49] LABS: Ceruloplasmin 21.5 mg/dL (20.0-60.0); Hepatitis B Surface Antigen Nonreactive (Nonreactive); Hepatitis C IgG Antibody Nonreactive (Nonreactive)
[2022-01-16 14:11] LABS: Albumin 4.12 g/dL (3.80-4.90); Gamma Globulin 1.25 g/dL (0.70-1.50)
== END | disposition home or self-care (01) ==
LOC: RADUSWWP 13:33
PROVIDERS: ATTEND Internal Medicine Gastroenterology
DX: K76.0 Fatty (change of) liver, not elsewhere classified (principal); K83.9 Disease of biliary tract, unspecified; R74.01 Elevation of levels of liver transaminase levels
CPT/HCPCS: 36415; 76700; 80053; 82103; 82390; 82728; 83516; 83540; 83550; 84165; 85025; 86038; 86803; 87340

== ENCOUNTER 2022-03-06 09:49 | Day surgery (SDC) | payer OTHER ==
[2022-03-05 08:15] VITALS: BMI 46.0
[~2022-03-06 09:49] MED LIST: LACTATED RINGERS 1,000 ML IV SCH
[2022-03-06 10:10] VITALS: TEMP 98.3
[2022-03-06] MEDS ORDERED: LIDOCAINE 2% INJ 20 MG/ML (2 ML VIAL) ONE (11:32)
[2022-03-06] MEDS ORDERED: PROPOFOL 10 MG/ML 20 ML VIAL IV ONE (11:32)
--- NOTE | 2022-03-06 11:42 | P.PCN ---
Date of Procedure: 03/06/22 Procedure(s) Performed: BRIEF HISTORY: Patient is a 36-year-old, pleasant, white female scheduled for an upper endoscopy as a part of evaluation of epigastric and right upper quadrant abdominal pain associated with nausea for the last 2 months duration. PROCEDURE PERFORMED: Esophagogastroduodenoscopy with biopsy. PREOPERATIVE DIAGNOSIS: Epigastric and right upper quadrant abdominal pain of 2 months duration IV sedation per anesthesia. PROCEDURE: After informed consent was obtained, the patient was brought into the endoscopy unit. IV sedation was administered by Anesthesia under continuous monitoring. Initially the Olympus GIF-140 video endoscope was inserted into the mouth. Esophagus intubated without any difficulty. It was gradually advanced into the stomach and duodenum and carefully examined. The bulb and the second part of the duodenum appeared normal. Biopsies were done from the duodenum to rule out celiac disease. The scope at this time was withdrawn to the stomach, adequately insufflated with air, and upon careful examination, mucosa of the antrum, had mild gastritis and biopsies were done from this area. The body, cardia and the fundus appeared normal. The scope was then withdrawn into the esophagus. The GE junction was located at 39 cm from the incisors. The esophagus appeared normal. There were no erosions or ulcerations seen, biopsies were done from the distal esophagus and the patient tolerated the procedure well. IMPRESSION: 1. Mild antral gastritis. 2. No evidence of esophagitis or peptic ulcer disease. RECOMMENDATIONS: The findings of this examination were discussed with the patient as well as her family. She was advised to follow with the biopsy r esults. In the meantime she'll continue with Protonix 40 mg daily and she will be seen in office in 2 weeks.
[2022-03-06 11:51] VITALS: RESP 18
[2022-03-06 12:02] VITALS: BP 136/90; PULSE 73
== END 2022-03-06 12:38 | disposition home or self-care (01) ==
LOC: ORWHC2ENDO 09:49
PROVIDERS: ATTEND Internal Medicine Gastroenterology
DX: K29.50 Unspecified chronic gastritis without bleeding (principal); I10 Essential (primary) hypertension; K21.9 Gastro-esophageal reflux disease without esophagitis; Z91.018 Allergy to other foods; Z79.899 Other long term (current) drug therapy; Z82.49 Family history of ischemic heart disease and other diseases of the circulatory system
CPT/HCPCS: 81025; 88305; 43239; J2704; J2001

== ENCOUNTER → 2022-04-14 | Outpatient (CLI) | payer OTHER ==
--- NOTE | 2022-04-14 12:35 | US ---
EXAMINATION TYPE: US pelvic complete DATE OF EXAM: 04/14/2022 COMPARISON: US 2018 CLINICAL HISTORY: R10.2 PELVIC PAIN, N94.6 DYSMENORRHEA. Irregular bleeding and cramping x 5 months, 3, para 3, surgical history - ablation 2014, 3 c-sections and tubal ligation TECHNIQUE: . Transabdominal sonographic images of the pelvis were acquired. Date of LMP: Unknown EXAM MEASUREMENTS: Uterus: 12.5 cm Endometrial Stripe: 0.7 cm Right Ovary: 2.9 x 2.3 x 1.9 cm Left Ovary: 2.6 x 1.7 x 2.2 cm 1. Uterus: enlarged, mildly heterogeneous 2. Endometrium: appears wnl 3. Right Ovary: wnl 4. Left Ovary: wnl 5. Bilateral Adnexa: wnl 6. Posterior cul-de-sac: wnl IMPRESSION: Nonspecific uterine myometrial heterogeneity.
== END | disposition home or self-care (01) ==
LOC: RADUSWWP 12:01
PROVIDERS: ATTEND Obstetrics & Gynecology
DX: R10.2 Pelvic and perineal pain (principal); N94.6 Dysmenorrhea, unspecified
CPT/HCPCS: 76856

== ENCOUNTER 2022-04-16 16:31 | Emergency (ER) | payer OTHER ==
[2022-04-16 16:47] VITALS: BP 187/91; PULSE 87; RESP 18; TEMP 98.4
[2022-04-16 17:20] LABS: Basophils # (A) 0.1 k/uL (0-0.2); Basophils % (A) 1 %; Eosinophils # (A) 0.2 k/uL (0-0.7); Eosinophils % (A) 2 %; HCT 44.4 % (34.0-46.0); HGB 14.5 gm/dL (11.4-16.0); Lymphocytes # (A) 2.4 k/uL (1.0-4.8); Lymphocytes % (A) 23 %; MCH 28.6 pg (25.0-35.0); MCHC 32.6 g/dL (31.0-37.0); MCV 87.8 fL (80.0-100.0); Mean Platelet Volume 7.1; Monocytes # (A) 0.6 k/uL (0-1.0); Monocytes % (A) 5 %; Neutrophils # (A) 7.3 k/uL (1.3-7.7); Neutrophils % (A) 69 %; Platelet Count 249 k/uL (150-450); RBC 5.06 m/uL (3.80-5.40); RDW 12.4 % (11.5-15.5); WBC 10.7 k/uL (3.8-10.6)
[2022-04-16 17:24] LABS: Prothrombin Time 10.7 sec (9.0-12.0)
[2022-04-16 17:34] LABS: ALT 49 U/L (4-34); AST 39 U/L (14-36); African American GFR (CKD) >90 (>60 ml/min/1.73 sqM); Albumin 4.7 g/dL (3.5-5.0); Alkaline Phosphatase 22 U/L (38-126); Anion Gap 14 mmol/L; Blood Urea Nitrogen 18 mg/dL (7-17); Calcium 9.5 mg/dL (8.4-10.2); Carbon Dioxide 22 mmol/L (22-30); Chloride 101 mmol/L (98-107); Glucose 95 mg/dL (74-99); Non-African American GFR(CKD) >90 (>60 ml/min/1.73 sqM); Potassium 4.3 mmol/L (3.5-5.1); Sodium 137 mmol/L (137-145); Total Bilirubin 0.6 mg/dL (0.2-1.3); Total Protein 7.8 g/dL (6.3-8.2)
--- NOTE | 2022-04-16 17:41 | XR ---
EXAMINATION TYPE: XR chest 2V DATE OF EXAM: 04/16/2022 COMPARISON: 10/04/2019 HISTORY: Shortness of breath TECHNIQUE: Frontal and lateral views of the chest are obtained. FINDINGS: There is mild interstitial prominence. No focal consolidation, pleural effusion, or pneumo thorax seen. The cardiac silhouette size is within normal limits. The osseous structures are intac t. IMPRESSION: Mild interstitial edema versus atelectasis. Superimposed infiltrate cannot be excluded.
--- NOTE | 2022-04-16 21:28 | ED ---
Chest Pain HPI - General Chief Complaint: Chest Pain Stated Complaint: Chest/back pain Time Seen by Provider: 04/16/22 19:09 Source: patient, RN notes reviewed Mode of arrival: ambulatory Limitations: no limitations - History of Present Illness Initial Comments: THIS is a pleasant 36-year-old female with history of hypertension, gastroesophageal reflux disease, previous cholecystectomy, section, and tubal ligation.patient is also previous uterine ablation. patient presents with right-sided abdominal pain which is sharp in nature. Seems to speak in the right upper quadrant and somewhat in the epigastrium and radiating around to the back. More on the right side. Unrelated to exertion. States it started last night at about 6 PM. Then started getting better and then worsened again today. She is unsure what is related to eating although patient does not have her gallbladder. Patient states it feels like it is catching her breath and making her feel short of breath. No headache, no fever or chills, no changes in vision or hearing, no sore throat or difficulty with speech, no nausea or vomiting, no changes in urination or bowel movements, no numbness or tingling, no extremity pain, no skin rashes or lesions. Past medical, surgical, social, and family history reviewed. - Related Data Home Medications Medication Instructions Recorded Confirmed Adalimumab [Humira(Cf) Pen] 40 mg SQ Q14D 10/04/19 03/06/22 Hyoscyamine Sulfate [Levsin] 0.125 mg PO TID 03/05/22 03/06/22 Pantoprazole [Protonix] 40 mg PO DAILY 03/05/22 03/06/22 Valsartan [Diovan] 160 mg PO HS 03/05/22 03/06/22 Allergies Allergy/AdvReac Type Severity Reaction Status Date / Time cinnamon AdvReac Itching Verified 03/06/22 10:06 clove AdvReac Itching Verified 03/06/22 10:06 Review of Systems ROS Statement: Those systems with pertinent positive or pertinent negative responses have been documented in the HPI. ROS Other: All systems not noted in ROS Statement are negative. Past Medical History Past Medical History: GERD/Reflux, Hypertension Additional Past Medical History / Comment(s): HX ABDOMINAL PAIN. PSORIATIC ARTHRITIS History of Any Multi-Drug Resistant Organisms: MRSA Date of last positivie culture/infection: UNK MDRO Source:: RT BIG TOE Past Surgical History: Section, Cholecystectomy, Tonsillectomy, Tubal Ligation, Uterine Ablation Additional Past Surgical History / Comment(s): EGD/COLONOSCOPY Past Anesthesia/Blood Transfusion Reactions: Previous Problems w/ Anesthesia Additional Past Anesthesia/Blood Transfusion Reaction / Comment(s): STATES SHE HAD MUSCLE WEAKNESS FOR 24 HOURS POST SURGERY IN June, (HAD GENERAL ANESTHESIA). Past Psychological History: No Psychological Hx Reported Smoking Status: Never smoker Past Alcohol Use History: None Reported Past Drug Use History: None Reported - Past Family History Mother Family Medical History: No Reported History Father Family Medical History: Hypertension General Exam - General Exam Comments Initial Comments: Patient appears hydrated. Capillary refill is normal. Does not appear to be ill or toxic. No distress. Vital signs reviewed Limitations: no limitations General appearance: alert, in no apparent distress Head exam: Present: atraumatic, normocephalic, normal inspection Eye exam: Present: normal appearance, PERRL, EOMI. Absent: scleral icterus, conjunctival injection, periorbital swelling ENT exam: Present: normal exam, mucous membranes moist Neck exam: Present: normal inspection, full ROM. Absent: tenderness, meningismus, lymphadenopathy Respiratory exam: Present: normal lung sounds bilaterally. Absent: respiratory distress, wheezes, rales, rhonchi, stridor Cardiovascular Exam: Present: regular rate, normal rhythm, normal heart sounds. Absent: systolic murmur, diastolic murmur, rubs, gallop, clicks GI/Abdominal exam: Present: soft, normal bowel sounds. Absent: distended, tenderness, guarding, rebound, rigid Extremities exam: Present: normal inspection, full ROM, normal capillary refill. Absent: tenderness, pedal edema, joint swelling, calf tenderness Back exam: Present: normal inspection Neurological exam: Present: alert, oriented X3, CN II-XII intact Psychiatric exam: Present: normal affect, normal mood Skin exam: Present: warm, dry, intact, normal color. Absent: rash Course Vital Signs 04/16/22 16:45 Temperature 98.4 F Pulse Rate 87 Respiratory 18 Rate Blood Pressure 187/91 O2 Sat by Pulse 98 Oximetry - Reevaluation(s) Reevaluation #1: 04/16/22 22:22 Medical record is reviewed Patient reevaluated. Symptomology essentially unchanged, possibly mildly improved Patient is informed of results and questions answered Patient in no distress 04/16/22 22:25 Chest Pain MDM - MDM Patient symptomology most consistent with pleurisy. Patient really had no significant tenderness to palpation. D-dimer was negative. Chest x-ray was clear, no infiltrate, no pneumothorax. Patient's pain really not consistent with cardiac disease. Possibly costochondritis. Does not appear to be consistent with shingles. I did discuss this with the ED attending physician, Dr. Levin. Patient had very minimal elevations of her transaminases. Alkaline phosphatase was low. Does not seem to be consistent with common bile duct stone. Patient previously had cholecystectomy. Patient has no chance of she's had an ablation, tubal ligation. Going to treat the patient with corticosteroids and acetaminophen. Patient was told to return to the ER for any signs or symptoms worsen. Told to return immediately if any other problems arise. All questions answered. Treatment plan discussed. Patient in agreement Every effort has been made to ensure accuracy of this dictation. However, due to the limitations of electronic medical records and dictation devices, errors in charting still occur. Disposition Clinical Impression: Pleurisy Disposition: HOME SELF-CARE Instructions (If sedation given, give patient instructions): Pleurisy (ED) Additional Instructions: Follow-up with your regular physician as directed. Return to the ER immediately if any symptoms worsen, new symptoms arise, or any other problems develop. Is patient prescribed a controlled substance at d/c from ED?: No Referrals: Mavis Mishra MD [Primary Care Provider] - 1-2 days Time of Disposition: 22:27
[2022-04-16] MEDS ORDERED: predniSONE 20 MG TAB PO STA (22:21)
[2022-04-16] MEDS ORDERED: ACETAMINOPHEN TAB 500 MG TAB PO STA (22:22)
== END 2022-04-16 23:15 | disposition home or self-care (01) ==
LOC: EC 16:31
DX: R09.1 Pleurisy (principal); I10 Essential (primary) hypertension; K21.9 Gastro-esophageal reflux disease without esophagitis; Z79.83 Long term (current) use of bisphosphonates; Z79.899 Other long term (current) drug therapy; Z91.018 Allergy to other foods
CPT/HCPCS: 99285 ×2; 36415; 93005; 85379; 80053; 83690; 84484; 85025; 85610; 71046; J7512

== ENCOUNTER → 2022-10-20 | Outpatient (CLI) | payer OTHER ==
--- NOTE | 2022-10-21 07:41 | MM ---
Reason for Exam: Screening (asymptomatic). Last mammogram was performed 2 year(s) and 3 month(s) ago. Indicated Problems: Non-bloody discharge of the right side (Clear) for 2 Month(s). Patient History: Menarche at age 14. First Full-Term at age 18. Patient used Hormonal Contraceptives for 2 years. Maternal aunt had breast cancer at or over age 50. Maternal aunt had breast cancer at or over age 50. Risk Values: Araceli 5 year model risk: 0.4%. NCI Lifetime model risk: 8.3%. Prior Study Comparison: 05/28/2014 Bilateral Diagnostic Mammogram, [facility]. 11/24/2018 Bilateral Screening Mammogram, [facility]. 07/31/2020 Bilateral Diagnostic Mammogram, [facility]. Tissue Density: There are scattered fibroglandular densities. Findings: Analyzed By CAD. There is no suspicious group of microcalcifications or new suspicious mass in either breast. Overall Assessment: Negative, BI-RAD 1 Management: Screening Mammogram of both breasts in 1 year. A clinical breast exam by your physician is recommended on an annual basis and results should be correlated with mammographic findings. Electronically signed and approved by: Jone Bruner M.D. Radiologis
== END | disposition home or self-care (01) ==
LOC: RADMAMWWP 07:36
PROVIDERS: ATTEND Family Medicine
DX: Z12.31 Encounter for screening mammogram for malignant neoplasm of breast (principal); Z80.3 Family history of malignant neoplasm of breast
CPT/HCPCS: 77063; 77067

== ENCOUNTER 2023-05-28 09:50 | Day surgery (SDC) | payer OTHER ==
[2023-05-27 09:48] VITALS: BMI 45.1
[2023-05-28] MEDS ORDERED: LACTATED RINGERS 1,000 ML IV ONE ×2 (10:37)
[2023-05-28 10:50] VITALS: RESP 16; TEMP 98.4
[2023-05-28] MEDS ORDERED: PROPOFOL 10 MG/ML 20 ML VIAL IV ONE (11:24)
[2023-05-28] MEDS ORDERED: LIDOCAINE 1% INJ 10MG/ML (20 ML MDV) ONE (11:24)
--- NOTE | 2023-05-28 11:38 | P.PCN ---
Date of Procedure: 05/28/23 Procedure(s) Performed: BRIEF HISTORY: Patient is a 37-year-old pleasant female scheduled for an elective colonoscopy as a part of evaluation of chronic diarrhea for the last several months duration. PROCEDURE PERFORMED: Colonoscopy with random biopsies. PREOPERATIVE DIAGNOSIS: Chronic Diarrhea. IV sedation per Anesthesia. PROCEDURE: After informed consent was obtained, the patient, was brought into the endoscopy unit. IV sedation was administered by Anesthesia under continuous monitoring. Digital rectal examination was normal. Initially the Olympus CF-160 flexible video colonoscope was then inserted in the rectum, gradually advanced into the cecum without any difficulty. Careful examination was performed as the scope was gradually being withdrawn. Ileocecal valve and the appendiceal orifice were visualized and appeared normal. Prep was excellent. Terminal ileum was intubated and 20 cm visualized and appeared normal. Mucosa of the cecum, ascending colon, transverse colon, descending colon, sigmoid colon, and rectum appeared normal. Random biopsies done from the ascending and descending colon to rule out metastatic/collagenous colitis. Retroflexion was performed in the rectum and no lesions were seen. The patient tolerated the procedure well. IMPRESSION: Normal-appearing colon from rectum to cecum no evidence of colorectal neoplasia . RECOMMENDATIONS: Findings of this examination were discussed with the patient as well as a family. She was advised to follow with the biopsy results.. Rest in office in 2 weeks.
[2023-05-28 12:14] VITALS: BP 126/84; PULSE 94
== END 2023-05-28 12:17 | disposition home or self-care (01) ==
LOC: ORWHC2ENDO 09:50
PROVIDERS: ATTEND Internal Medicine Gastroenterology
DX: K52.9 Noninfective gastroenteritis and colitis, unspecified (principal); I10 Essential (primary) hypertension; K21.9 Gastro-esophageal reflux disease without esophagitis; Z79.899 Other long term (current) drug therapy
CPT/HCPCS: 81025; 88305; 45380; J2001; J2704

== ENCOUNTER → 2023-08-05 | Day surgery (SDC) | payer OTHER ==
[2023-08-03 11:48] VITALS: BMI 48.1
[~2023-08-05] MED LIST changes: -LACTATED RINGERS 1,000 ML IV SCH; +SODIUM CHLORIDE 0.9% 1,000 ML IV SCH
[2023-08-05 07:25] VITALS: BP 134/87; PULSE 73; RESP 18; TEMP 97.8
--- NOTE | 2023-08-05 15:56 | P.EPPROC ---
- EP Procedure Note Electrophysiology Procedure Note: Diagnosis Recurrent presyncope Twelve-lead EKG shows sinus rhythm normal UT narrow kilos normal ST segments normal QT interval Tilt table test for protocol Baseline heart rate 65 beats a minute, Baseline blood pressure 129/86. His mercury patient was tilted upright at 70 per protocol No significant change in heart rate blood pressure She felt lightheaded without any change in heart rate and blood pressure She was laid supine at the end of the procedure Impression normal twelve-lead EKG Normal heart rate and blood pressure response to upright tilting
== END ==
LOC: CATHEP 06:38
PROVIDERS: ATTEND Internal Medicine Clinical Cardiac Electrophysiology
DX: R55 Syncope and collapse (principal); E66.9 Obesity, unspecified; I10 Essential (primary) hypertension; K21.9 Gastro-esophageal reflux disease without esophagitis; Z68.41 Body mass index [BMI] 40.0-44.9, adult; Z79.899 Other long term (current) drug therapy
CPT/HCPCS: 93660

== ENCOUNTER → 2023-08-17 | Outpatient (CLI) | payer OTHER ==
--- NOTE | 2023-08-17 12:11 | XR ---
EXAMINATION TYPE: XR ankle limited LT DATE OF EXAM: 08/17/2023 COMPARISON: NONE HISTORY: 38-year-old female M25.572 PAIN IN LEFT ANKLE AND JOINTS OF LEFT FOOT. Patient rolled ankle 3 weeks ago. TECHNIQUE: 2 views FINDINGS: Ankle mortise appears congruent. Mortise view not provided. There is mild thickening of the Achilles insertion with moderate sized posterior and plantar heel spurs. Subtalar joint alignment. T alar dome appears intact. No acute fracture, subluxation, dislocation seen. IMPRESSION: 1. Only 2 views provided. A mortise view was not taken. No acute osseous abnormality seen. 2. There may be some insertional Achilles tendinopathy. Moderate sized posterior and plantar heel spu rs.
== END | disposition home or self-care (01) ==
LOC: RADXRMAIN 11:37
PROVIDERS: ATTEND Family Medicine
DX: M77.32 Calcaneal spur, left foot (principal); M25.572 Pain in left ankle and joints of left foot

== ENCOUNTER → 2023-11-02 | Outpatient (CLI) | payer OTHER ==
--- NOTE | 2023-11-03 07:51 | MM ---
Reason for Exam: Screening (asymptomatic). Last mammogram was performed 1 year(s) and 1 month(s) ago. Patient History: Menarche at age 14. First Full-Term at age 18. Patient used Hormonal Contraceptives for 2 years. Maternal aunt had breast cancer at or over age 50. Maternal aunt had breast cancer at or over age 50. Risk Values: Araceli 5 year model risk: 0.5%. NCI Lifetime model risk: 8.3%. Prior Study Comparison: 11/24/2018 Bilateral Screening Mammogram, [facility]. 07/31/2020 Bilateral Diagnostic Mammogram, [facility]. 10/20/2022 Bilateral MG 3D screening mammo w/cad, [facility]. Tissue Density: There are scattered areas of fibroglandular density. Findings: Analyzed By CAD. The pattern is symmetrical. No significant interval change No suspicious groups of microcalcifications, spiculated or lobular masses, architectural distortion or other secondary signs of malignancy are mammographically apparent. Overall Assessment: Negative, BI-RAD 1 Management: Screening Mammogram of both breasts in 1 year. A negative mammogram report should not preclude additional follow up of suspicious palpable abnormalities. Patient should continue monthly self breast exam. A clinical breast exam by your physician is recommended on an annual basis and results should be correlated with mammographic findings. Electronically signed and approved by: Ash Aquino D.O. Radiologis
== END | disposition home or self-care (01) ==
LOC: RADMAMWWP 07:00
PROVIDERS: ATTEND Family Medicine
DX: Z12.31 Encounter for screening mammogram for malignant neoplasm of breast (principal); Z80.3 Family history of malignant neoplasm of breast
CPT/HCPCS: 77063; 77067

== ENCOUNTER → 2024-05-09 | Outpatient (CLI) | payer OTHER ==
--- NOTE | 2024-05-09 14:28 | USB ---
Reason for Exam: Clinical finding. Patient History: Menarche at age 14. First Full-Term at age 18. Patient used Hormonal Contraceptives for 2 years. Maternal aunt had breast cancer at or over age 50. Maternal aunt had breast cancer at or over age 50. Risk Values: Araceli 5 year model risk: 0.5%. NCI Lifetime model risk: 8.3%. Technique: Method: Targeted. Doppler: Color. Patient Position: Supine. Prior Study Comparison: 07/31/2020 Bilateral Diagnostic Mammogram, [facility]. 10/20/2022 Bilateral MG 3D screening mammo w/cad, [facility]. 11/02/2023 Bilateral MG 3D screening mammo w/cad, [facility]. Findings: The periareolar of the left breast, the axilla of the left breast and the retroareolar of the left breast were scanned. Prominent retroareolar ducts. No obvious mass or other shadowing posterior to the nipple. 6 month follow-up ultrasound is recommended. Clinical correlation advised. Overall Assessment: Probably benign, BI-RAD 3 Management: Diagnostic Breast Ultrasound of the left breast in 6 months. A clinical breast exam by your physician is recommended on an annual basis and results should be correlated with mammographic findings. This exam should not preclude additional follow-up of suspicious palpable abnormalities. Results were given to the patient verbally at the time of exam. [facility], , 05/09/2024 2:25 PM. Electronically signed and approved by: Jone Bruner M.D. Radiologis
--- NOTE | 2024-05-10 13:24 | MM ---
Reason for Exam: Clinical finding. Last screening mammogram was performed 6 month(s) ago. Indicated Problems: Bloody discharge of the left side for 2 Month(s). Patient History: Menarche at age 14. First Full-Term at age 18. Patient used Hormonal Contraceptives for 2 years. Maternal aunt had breast cancer at or over age 50. Maternal aunt had breast cancer at or over age 50. Risk Values: Araceli 5 year model risk: 0.5%. NCI Lifetime model risk: 8.3%. Prior Study Comparison: 05/28/2014 Bilateral Diagnostic Mammogram, [facility]. 11/24/2018 Bilateral Screening Mammogram, [facility]. 07/31/2020 Bilateral Diagnostic Mammogram, [facility]. 10/20/2022 Bilateral MG 3D screening mammo w/cad, [facility]. 11/02/2023 Bilateral MG 3D screening mammo w/cad, [facility]. Tissue Density: There are scattered areas of fibroglandular density. Findings: Analyzed By CAD. No evidence of mass or distortion. No suspicious calcifications. Overall Assessment: Negative, BI-RAD 1 Management: Screening Mammogram of both breasts in 1 year. . Results were given to the patient verbally at the time of exam. Patient should continue monthly self-breast exams. A clinical breast exam by your physician is recommended on an annual basis. This exam should not preclude additional follow-up of suspicious palpable abnormalities. Note on Araceli scores and lifetime risk: 1. A Araceli score greater than 3% is considered moderate risk. If this is the case, consider specialist referral to assess eligibility for a risk reducing agent. 2. If overall lifetime risk for the development of breast cancer is 20% or higher, the patient may qualify for future screening with alternating mammogram and breast MRI. [facility], , 05/10/2024 1:21 PM. Electronically signed and approved by: Jone Bruner M.D. Radiologis
== END | disposition home or self-care (01) ==
LOC: RADMAMWWP 13:36
PROVIDERS: ATTEND Family Medicine
DX: N64.52 Nipple discharge
CPT/HCPCS: 77062; 77066

== ENCOUNTER → 2024-11-14 | Outpatient (CLI) | payer OTHER ==
--- NOTE | 2024-11-14 08:04 | USB ---
Reason for Exam: Follow-up at short interval from prior study. Patient History: Menarche at age 14. First Full-Term at age 18. Patient used Hormonal Contraceptives for 2 years. Maternal aunt had breast cancer at or over age 50. Maternal aunt had breast cancer at or over age 50. Risk Values: Araceli 5 year model risk: 0.5%. NCI Lifetime model risk: 8.2%. Technique: Method: Targeted. Prior Study Comparison: 10/20/2022 Bilateral MG 3D screening mammo w/cad, [facility]. 11/02/2023 Bilateral MG 3D screening mammo w/cad, [facility]. 05/09/2024 Bilateral MG 3D diag mammo w/cad [facility], [facility]. Findings: The axilla of the left breast and the retroareolar of the left breast were scanned. Targeted ultrasound was performed. Subareolar region currently unremarkable without mass or fluid collection. A slightly prominent lymph node in the left axilla remains present similar to prior. Overall Assessment: Benign, BI-RAD 2 Management: Screening Mammogram of both breasts in 6 months. Back on schedule. A clinical breast exam by your physician is recommended on an annual basis and results should be correlated with mammographic findings. This exam should not preclude additional follow-up of suspicious palpable abnormalities. Results were given to the patient verbally at the time of exam. [facility], , 11/14/2024 8:00 AM. Electronically signed and approved by: Kris Calvert M.D.
== END | disposition home or self-care (01) ==
LOC: RADUSWWP 07:31
PROVIDERS: ATTEND Family Medicine
DX: R92.8 Other abnormal and inconclusive findings on diagnostic imaging of breast (principal); Z92.0 Personal history of contraception; Z80.3 Family history of malignant neoplasm of breast